=== PATIENT | female | born 1995 | race Caucasian/White ===

== ENCOUNTER 2017-04-04 21:55 | Emergency (ER) | payer BC ==
[2017-04-04 22:20] VITALS: BP 120/70
[2017-04-04] MEDS ORDERED: Metoclopramide 10 MG/2 ML SDV IVPUSH ONE (23:00)
[2017-04-04] MEDS ORDERED: Ketorolac 30 MG/ML SDV IVPUSH SCH (23:00)
[2017-04-04] MEDS ORDERED: HYDROmorphone 0.5 MG/0.5 ML Syringe IVPUSH ONE (23:00)
[2017-04-04] MEDS ORDERED: Dextrose 5%-0.9% NaCl 1,000 ML IV SCH (23:00)
--- NOTE | 2017-04-04 23:02 | EDM.PDOC ---
ED HPI GENERAL MEDICAL PROBLEM - General Chief Complaint: Flank Pain Stated Complaint: RIGHT FLANK PAIN Time Seen by Provider: 04/04/17 22:56 Source of Information: Reports: Patient History Limitations: Reports: No Limitations - History of Present Illness INITIAL COMMENTS - FREE TEXT/NARRATIVE: 22-year-old female presents the ED with diffuse right sided abdominal pain rating up into her right flank. Associated nausea but no vomiting. Poor appetite developed fever and chills today. She is appreciated some dysuria with some urgency and frequency off and on for the last 3 days. Previous urinary tract infections but no kidney infections. No previous abdominal surgery. She has noted some blood in her urine. Denies any chance for . Onset: Gradual Onset Date: 04/01/17 (Initial dysuria and frequency. Right flank pain fever and chills starting more the last 24 hours) Duration: Day(s): Location: Reports: Back (Right flank pain started 24 hours ago) Quality: Reports: Burning, Stabbing, Throbbing Severity: Moderate Improves with: Reports: None (8 out of 10.) Worsens with: Reports: None Context: Denies: Activity, Exercise, Lifting, Sick Contact Associated Symptoms: Reports: Fever/Chills, Loss of Appetite, Malaise, Nausea/ Vomiting. 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: Other (see below) (None.) Right Flank Pain Score (Numeric/FACES): 7 - Related Data Allergies Allergy/AdvReac Type Severity Reaction Status Date / Time adhesive Allergy Rash Verified 04/04/17 22:20 morphine AdvReac Intermediate Airway Verified 04/04/17 22:20 Tightness Home Meds: Home Meds Albuterol Sulfate [Proair Hfa] 2 puff INH ASDIRECTED 03/10/15 [History] DULoxetine [Cymbalta] 60 mg PO DAILY 04/04/17 [History] Sulfamethoxazole/Trimethoprim [Bactrim Ds Tablet] 1 each PO BID #18 tablet 04/05 [Rx] Past Medical History - Past Health History Medical/Surgical History: Denies Medical/Surgical History Other HEENT History: wisdom Gastrointestinal History: Reports: Other (See Below) Other Gastrointestinal History: pyloric stenosis surgery Musculoskeletal History: Reports: Fibromyalgia Psychiatric History: Reports: Anxiety - Past Surgical History Other GI Surgeries/Procedures: "Stomach surgery" Social & Family History - Family History Family Medical History: Noncontributory - Tobacco Use Smoking Status *Q: Never Smoker Second Hand Smoke Exposure: No - Alcohol Use Days Per Week of Alcohol Use: 0 - Recreational Drug Use Recreational Drug Use: No - Living Situation & Occupation Living situation: Reports: Single Occupation: Employed ED ROS GENERAL - Review of Systems Review Of Systems: See Below Constitutional: Reports: Fever, Chills, Malaise, Weakness, Fatigue, Decreased Appetite. Denies: Weight Loss HEENT: Reports: No Symptoms Respiratory: Reports: No Symptoms Cardiovascular: Reports: No Symptoms Endocrine: Reports: Fatigue GI/Abdominal: Reports: Abdominal Pain (Right effie-abdominal pain), Decreased Appetite, Nausea : Reports: Dysuria, Flank Pain, Frequency, Hematuria. Denies: Urgency Musculoskeletal: Reports: Back Pain (Right flank pain) Skin: Reports: No Symptoms Neurological: Reports: No Symptoms ED EXAM, RENAL/ - Physical Exam Exam: See Below Exam Limited By: No Limitations General Appearance: Alert, WD/WN, Mild Distress (Does feel warm to palpation.), Other Eye Exam: Bilateral Eye: Normal Inspection, PERRL Throat/Mouth: Normal Inspection, Normal Lips, Normal Oropharynx Head: Atraumatic, Normocephalic Neck: Normal Inspection, Supple, Non-Tender, Full Range of Motion. No: Lymphadenopathy (L), Lymphadenopathy (R) Respiratory/Chest: No Respiratory Distress, Lungs Clear, Normal Breath Sounds, No Accessory Muscle Use Cardiovascular: Normal Peripheral Pulses, Regular Rate, Rhythm, No Edema, No Gallop, No Murmur GI/Abdominal: Normal Bowel Sounds, Soft, Non-Tender, No Organomegaly, No Abnormal Bruit, No Mass, Pelvis Stable Back Exam: Full Range of Motion, CVA Tenderness (R). No: CVA Tenderness (L) ( Moderate) Extremities: Normal Inspection, Normal Range of Motion, Non-Tender, No Pedal Edema, Normal Capillary Refill Neurological: Alert, Oriented, Normal Cognition, Normal Gait, Normal Reflexes, No Motor/Sensory Deficits Psychiatric: Normal Affect, Normal Mood Skin Exam: Warm, Dry, Intact, Normal Color, No Rash Course - Vital Signs Last Recorded V/S: Last Vital Signs Temp 37.0 C 04/04/17 22:17 Pulse 84 04/04/17 22:17 Resp 16 04/04/17 22:17 BP 120/70 04/04/17 22:17 Pulse Ox 99 04/04/17 22:17 - Orders/Labs/Meds Orders: Active Orders 24 hr Category Date Time Status CULTURE BLOOD [BC] Stat Lab 04/04/17 23:10 Received CULTURE BLOOD [BC] Stat Lab 04/04/17 23:20 Received CULTURE URINE [RM] Stat Lab 04/04/17 23:26 Uncollected Dextrose 5%-0.9% NaCl [Dextrose 5%-Normal Saline] 1,000 Med 04/04/17 23:00 Active ml IV ASDIRECTED Ketorolac [Toradol] Med 04/04/17 23:00 Active 30 mg IVPUSH ONETIME Blood Culture x2 Reflex Set [OM.PC] Stat Oth 04/04/17 23:00 Ordered Medication Orders Dextrose/Sodium Chloride (Dextrose 5%-Normal Saline) 1,000 mls @ 500 mls/hr IV ASDIRECTED LUCY Last Admin: 04/04/17 23:22 Dose: 500 mls/hr Ketorolac Tromethamine (Toradol) 30 mg IVPUSH ONETIME LUCY Last Admin: 04/04/17 23:18 Dose: 30 mg Labs: Laboratory Tests 04/04/17 04/04/17 04/04/17 Range/Units 22:45 23:10 23:10 WBC 6.03 (3.98-10.04) K/mm3 RBC 4.85 (3.98-5.22) M/mm3 Hgb 12.5 (11.2-15.7) gm/L Hct 37.3 (34.1-44.9) % MCV 76.9 L (79.4-94.8) fl MCH 25.8 (25.6-32.2) pg MCHC 33.5 (32.2-35.5) g/dl RDW Std Deviation 38.1 (36.4-46.3) fL Plt Count 232 (182-369) K/mm3 MPV 10.3 (9.4-12.3) fl Neutrophils % (Manual) 42 (40-60) % Band Neutrophils % 0 (0-10) % Lymphocytes % (Manual) 54 H (20-40) % Immat Monocytes % (Man) 0 Monocytes % (Manual) 4 (2-10) % Eosinophils % (Manual) 0 L (0.7-5.8) % Basophils % (Manual) 0 L (0.1-1.2) Metamyelocytes % 0 Myelocytes % 0 Promyelocytes % 0 Blast Cells % 0 Plasma Cell % (Manual) 0 Nucleated RBCs 0.0 % Platelet Estimate Adequate RBC Morph Comment Normal Sodium 141 (136-145) mEq/L Potassium 3.2 L (3.5-5.1) mEq/L Chloride 106 (98-107) mEq/L Carbon Dioxide 26 (21-32) mEq/L Anion Gap 12.2 (5-15) BUN 13 (7-18) mg/dL Creatinine 0.8 (0.55-1.02) mg/dL Est Cr Clr Drug Dosing 91.24 mL/min Estimated GFR (MDRD) > 60 (>60) mL/min BUN/Creatinine Ratio 16.3 (14-18) Glucose 162 H (74-106) mg/dL Calcium 8.5 (8.5-10.1) mg/dL Total Bilirubin 0.4 (0.2-1.0) mg/dL AST 32 (15-37) U/L ALT 75 H (14-59) U/L Alkaline Phosphatase 42 L (46-116) U/L C-Reactive Protein 0.6 (<1.0) mg/dL Total Protein 7.1 (6.4-8.2) g/dl Albumin 3.4 (3.4-5.0) g/dl Globulin 3.7 gm/dL Albumin/Globulin Ratio 0.9 L (1-2) HCG, Qual (NEGATIVE) Urine Color Yellow (Yellow) Urine Appearance Slt cloudy H (Clear) Urine pH 8.5 H (5.0-8.0) Ur Specific [place] 1.020 (1.005-1.030) Urine Protein 2+ H (Negative) Urine Glucose (UA) Negative (Negative) Urine Ketones Negative (Negative) Urine Occult Blood 2+ H (Negative) Urine Nitrite Negative (Negative) Urine Bilirubin Negative (Negative) Urine Urobilinogen 2.0 H (0.2-1.0) Ur Leukocyte Esterase 1+ H (Negative) Urine RBC 20-30 H (0-5) /hpf Urine WBC 10-20 H (0-5) /hpf Ur Epithelial Cells 0-5 (0-5) /hpf Urine Bacteria Few (FEW) /hpf Urine Mucus Few (FEW) /hpf 04/04/17 Range/Units 23:10 WBC (3.98-10.04) K/mm3 RBC (3.98-5.22) M/mm3 Hgb (11.2-15.7) gm/L Hct (34.1-44.9) % MCV (79.4-94.8) fl MCH (25.6-32.2) pg MCHC (32.2-35.5) g/dl RDW Std Deviation (36.4-46.3) fL Plt Count (182-369) K/mm3 MPV (9.4-12.3) fl Neutrophils % (Manual) (40-60) % Band Neutrophils % (0-10) % Lymphocytes % (Manual) (20-40) % Immat Monocytes % (Man) Monocytes % (Manual) (2-10) % Eosinophils % (Manual) (0.7-5.8) % Basophils % (Manual) (0.1-1.2) Metamyelocytes % Myelocytes % Promyelocytes % Blast Cells % Plasma Cell % (Manual) Nucleated RBCs % Platelet Estimate RBC Morph Comment Sodium (136-145) mEq/L Potassium (3.5-5.1) mEq/L Chloride (98-107) mEq/L Carbon Dioxide (21-32) mEq/L Anion Gap (5-15) BUN (7-18) mg/dL Creatinine (0.55-1.02) mg/dL Est Cr Clr Drug Dosing mL/min Estimated GFR (MDRD) (>60) mL/min BUN/Creatinine Ratio (14-18) Glucose (74-106) mg/dL Calcium (8.5-10.1) mg/dL Total Bilirubin (0.2-1.0) mg/dL AST (15-37) U/L ALT (14-59) U/L Alkaline Phosphatase (46-116) U/L C-Reactive Protein (<1.0) mg/dL Total Protein (6.4-8.2) g/dl Albumin (3.4-5.0) g/dl Globulin gm/dL Albumin/Globulin Ratio (1-2) HCG, Qual Negative (NEGATIVE) Urine Color (Yellow) Urine Appearance (Clear) Urine pH (5.0-8.0) Ur Specific [place] (1.005-1.030) Urine Protein (Negative) Urine Glucose (UA) (Negative) Urine Ketones (Negative) Urine Occult Blood (Negative) Urine Nitrite (Negative) Urine Bilirubin (Negative) Urine Urobilinogen (0.2-1.0) Ur Leukocyte Esterase (Negative) Urine RBC (0-5) /hpf Urine WBC (0-5) /hpf Ur Epithelial Cells (0-5) /hpf Urine Bacteria (FEW) /hpf Urine Mucus (FEW) /hpf Meds: Medications Generic Name Dose Route Start Last Admin Trade Name Freq PRN Reason Stop Dose Admin Dextrose/Sodium Chloride 1,000 mls @ 500 mls/hr 04/04/17 23:00 04/04/17 23:22 Dextrose 5%-Normal Saline IV 500 mls/hr ASDIRECTED LUCY Administration Ketorolac Tromethamine 30 mg 04/04/17 23:00 04/04/17 23:18 Toradol IVPUSH 30 mg ONETIME LUCY Administration Discontinued Medications Generic Name Dose Route Start Last Admin Trade Name Freq PRN Reason Stop Dose Admin Hydromorphone HCl 0.5 mg 04/04/17 23:00 04/04/17 23:19 Dilaudid IVPUSH 04/04/17 23:01 0.5 mg ONETIME ONE Administration Ceftriaxone Sodium 2 gm/ 100 mls @ 200 mls/hr 04/04/17 23:28 04/04/17 23:45 Sodium Chloride IV 04/04/17 23:57 200 mls/hr ONETIME ONE Administration Metoclopramide HCl 7.5 mg 04/04/17 23:00 04/04/17 23:15 Reglan IVPUSH 04/04/17 23:01 7.5 mg ONETIME ONE Administration - Radiology Interpretation Free Text/Narrative:: 22-year-old female presents to the ER with dysuria urgency frequency and hematuria for the last 2-3 days. Last 24 she developed right-sided flank pain which is constant throbbing with associated nausea fever and chills. Clinically she has developed a right-sided pyelonephritis She has had bladder infections before but never kidney infection to her knowledge. She is warm to palpation. Plan IV D5 normal saline at 500 mils per hour. Given Dilaudid 0.5 mg IV with Toradol 30 mg IV and Reglan 7.5 mg IV for pain and nausea relief. Urinalysis to be collected as well as routine labs including CRP and blood cultures 2 and a beta-hCG. - Re-Assessments/Exams Free Text/Narrative Re-Assessment/Exam: 04/04/17 23:27 urinalysis shows 2+ blood on the dip. It shows 20-30 red RBCs per power field but only to 10 WBCs per high-power field. Minimal bacteria are appreciated. This is concerning for possible stone disease causing the hematuria. However she does appear to be febrile as well. We'll await the rest of her labs. 04/05/17 01:01 Labs reveal a total white count of 6.03 with a normal differential hemoglobin is 12.5 with hematocrit of 37.3. MCV is a little on the low side at 76.9. Blood count 232,000. Sodium 141 potassium slightly low at 3.2 chloride 106 bicarbonate 26 and a gap is 12.2 be when his 13 creatinine is 0.8. Glucose is elevated 162. Bilirubin 0.4 AST 32 ALT mildly elevated at 75 of phosphatase normal at 42 C-reactive protein 0.6. HCG was negative. Urine is slightly cloudy with 2+ protein and 2+ blood cells. Leukocyte esterase trace with 20-30 RBCs and 10-20 white blood cells per high-power field recorded. 0-5 epithelial cells. She is feeling much improved after IV analgesia and has completed IV Rocephin. I will discharge her home on Bactrim double strength 1 tablet twice daily for the next 9 days. I have some concerns or may be a renal colicky picture her. But I did not pursue further investigations the reason is that she has a normal white count in spite of a low-grade fever. She has continued pain and imaging of her renal system with CT would be advised to look for a stone. Departure - Departure Time of Disposition: 00:49 Disposition: Home, Self-Care 01 Condition: Fair Clinical Impression: Upper urinary tract infection - Discharge Information Prescriptions: Sulfamethoxazole/Trimethoprim [Bactrim Ds Tablet] 1 each PO BID #18 tablet Instructions: Urinary Tract Infection, Adult Referrals: Nery De, [employer] [Primary Care Provider] - Forms: ED Department Discharge Additional Instructions: Evaluation in the emergency room tonight in regards to right flank pain and urinary tract symptoms of dysuria urgency and frequency for 2-3 days. Associated low-grade fever indicating bacteria entering the bloodstream making you sick. This suggests a kidney infection is developing. Lab work was done and revealed a fairly normal white count suggesting no signs of severe systemic infection at this time. Year infection appears to travel from the bladder up into the ureter mimicking renal colic or kidney stone. You're treated therefore with the initial dose of antibiotic Rocephin 1 g intravenously. Will need to continue antibiotics in the form of a pill. Start Bactrim double strength 1 tablet twice daily tomorrow morning and uses for 9 days to clear up infection completely. Continue Motrin 600 mg every 6 hours for fever and/or pain relief as needed. He should expect marked improvement over the next 12-24 hours when the intravenous antibiotic has started to work. - My Orders Last 24 Hours: My Active Orders 04/04/17 23:00 Dextrose 5%-0.9% NaCl [Dextrose 5%-Normal Saline] 1,000 ml IV ASDIRECTED Ketorolac [Toradol] 30 mg IVPUSH ONETIME Blood Culture x2 Reflex Set [OM.PC] Stat 04/04/17 23:10 CULTURE BLOOD [BC] Stat 04/04/17 23:20 CULTURE BLOOD [BC] Stat 04/04/17 23:26 CULTURE URINE [RM] Stat - Assessment/Plan Last 24 Hours: My Active Orders 04/04/17 23:00 Dextrose 5%-0.9% NaCl [Dextrose 5%-Normal Saline] 1,000 ml IV ASDIRECTED Ketorolac [Toradol] 30 mg IVPUSH ONETIME Blood Culture x2 Reflex Set [OM.PC] Stat 04/04/17 23:10 CULTURE BLOOD [BC] Stat 04/04/17 23:20 CULTURE BLOOD [BC] Stat 04/04/17 23:26 CULTURE URINE [RM] Stat
[2017-04-04] MEDS ORDERED: cefTRIAXone 2 GM in Sodium Chloride 0.9% 100 ML IV ONE (23:28)
== END 2017-04-05 00:59 | disposition home or self-care (01) ==
LOC: JD.ED 21:55
DX: N39.0 Urinary tract infection, site not specified (principal); F41.9 Anxiety disorder, unspecified; Z79.899 Other long term (current) drug therapy; Z88.5 Allergy status to narcotic agent; Z91.048 Other nonmedicinal substance allergy status
CPT/HCPCS: 36415; 80053; 81001; 84703; 85025; 86140; 87040; 96361; 96365; 96375; 99284; J0696; J1170; J1885; J2765; J7030; J7042

== ENCOUNTER 2017-04-24 07:24 | Emergency (ER) | payer BC ==
[2017-04-24 07:33] VITALS: BP 127/81
[2017-04-24] MEDS ORDERED: Acetaminophen 325 MG Tab PO ONE (08:44)
[2017-04-24] MEDS ORDERED: Ketorolac 30 MG/ML SDV IM ONE (08:44)
--- NOTE | 2017-04-24 08:46 | EDM.PDOC ---
ED HPI GENERAL MEDICAL PROBLEM - General Chief Complaint: Back Pain or Injury Stated Complaint: NECK, BACK, SHOULDER PAIN Time Seen by Provider: 04/24/17 07:41 Source of Information: Reports: Patient History Limitations: Reports: No Limitations - History of Present Illness INITIAL COMMENTS - FREE TEXT/NARRATIVE: The patient is a 22-year-old female with a chief complaint of right neck and shoulder pain. States it started about a day ago. No injury. No recent heavy lifting or other exercise. Pain is located in the right neck area and radiates down towards the shoulder. Worse with movement of the head. No relieving factors. She tried a cyclobenzaprine this morning and that was not helpful. She did not take any other medications. No additional pains. No fever or recent illness or recent injury. No numbness or weakness. Right Shoulder Pain Score (Numeric/FACES): 8 - Related Data Allergies Allergy/AdvReac Type Severity Reaction Status Date / Time adhesive Allergy Rash Verified 04/24/17 07:33 morphine AdvReac Intermediate Airway Verified 04/24/17 07:33 Tightness Home Meds: Home Meds Albuterol Sulfate [Proair Hfa] 2 puff INH ASDIRECTED 03/10/15 [History] DULoxetine [Cymbalta] 60 mg PO DAILY 04/04/17 [History] Past Medical History - Past Health History Medical/Surgical History: Denies Medical/Surgical History Other HEENT History: wisdom Respiratory History: Reports: Asthma Gastrointestinal History: Reports: Other (See Below) Other Gastrointestinal History: pyloric stenosis surgery Musculoskeletal History: Reports: Fibromyalgia Psychiatric History: Reports: Anxiety - Past Surgical History Other GI Surgeries/Procedures: "Stomach surgery" Social & Family History - Family History Family Medical History: Noncontributory - Tobacco Use Smoking Status *Q: Never Smoker Second Hand Smoke Exposure: No - Caffeine Use Caffeine Use: Reports: None - Alcohol Use Days Per Week of Alcohol Use: 0 - Recreational Drug Use Recreational Drug Use: No - Living Situation & Occupation Living situation: Reports: Single Occupation: Employed ED ROS GENERAL - Review of Systems Review Of Systems: See Below Constitutional: Denies: Fever HEENT: Reports: No Symptoms Respiratory: Denies: Cough Cardiovascular: Denies: Chest Pain Musculoskeletal: Reports: Neck Pain, Shoulder Pain Skin: Denies: Rash Neurological: Denies: Numbness, Paresthesia, Weakness ED EXAM, UPPER BACK/NECK PAIN - Physical Exam Exam: See Below Exam Limited By: No Limitations General Appearance: Alert, WD/WN, No Apparent Distress Eye Exam: Bilateral Eye: Normal Inspection Ears Exam: Normal External Exam Nose Exam: Normal Inspection Throat/Mouth Exam: Normal Inspection, Normal Voice, No Airway Compromise Head Exam: Atraumatic, Normocephalic Neck Exam: Full Range of Motion, Normal Alignment, Normal Inspection, Other (No midline tenderness. Skin normal. No swellings or deformities. Patient is tender throughout the right trapezius area.) Cardiovascular/Respiratory: No Respiratory Distress Back Exam: Normal Inspection. No: Vertebral Tenderness Extremities: Normal Inspection Neurologic: No Motor/Sensory Deficits, Normal Mood/Affect, Oriented x 3 Psychiatric: Normal Affect, Normal Mood Skin Exam: Normal Color, Warm/Dry Course - Vital Signs Last Recorded V/S: Last Vital Signs Temp 36.6 C 04/24/17 07:29 Pulse 68 04/24/17 07:29 Resp 16 04/24/17 07:29 BP 127/81 04/24/17 07:29 Pulse Ox 95 04/24/17 07:29 - Orders/Labs/Meds Meds: Medications Discontinued Medications Generic Name Dose Route Start Last Admin Trade Name Michi PRN Reason Stop Dose Admin Acetaminophen 650 mg 04/24/17 08:44 04/24/17 08:55 Tylenol PO 04/24/17 08:45 650 mg NOW ONE Administration Ketorolac Tromethamine 30 mg 04/24/17 08:44 04/24/17 08:54 Toradol IM 04/24/17 08:45 30 mg ONETIME ONE Administration Departure - Departure Time of Disposition: 08:45 Disposition: Home, Self-Care 01 Clinical Impression: Trapezius muscle strain Qualifiers: Encounter type: initial encounter Laterality: right Qualified Code(s): S46.811A - Strain of other muscles, fascia and tendons at shoulder and upper arm level, right arm, initial encounter - Discharge Information Instructions: Muscle Strain, [id number] Referrals: Nery De [employer] [Primary Care Provider] - Forms: ED Department Discharge Additional Instructions: 1. Apply heat off and on to the area of pain 2. Take ibuprofen 600 mg (3 tablets) every 6 hours of pain. Take acetaminophen (Tylenol) in addition to ibuprofen according to bottle directions. Ibuprofen and acetaminophen work in different ways and are cleared by the body in different ways - it is OK to take them together. You may also take your home flexeril (cyclobenzaprine) for muscle relaxation. 3. Follow up with your primary doctor for further care.
== END 2017-04-24 09:00 | disposition home or self-care (01) ==
LOC: JD.ED 07:24
DX: S46.811A Strain of other muscles, fascia and tendons at shoulder and upper arm level, right arm, initial encounter (principal); Z88.5 Allergy status to narcotic agent; Z79.899 Other long term (current) drug therapy; X58.XXXA Exposure to other specified factors, initial encounter
CPT/HCPCS: 96372; 99283; A9270; J1885

== ENCOUNTER 2017-06-20 20:40 | Emergency (ER) | payer BC ==
[2017-06-20 21:34] VITALS: BP 130/67
[2017-06-20] MEDS ORDERED: Doxycycline 100 MG Cap PO ONE (21:34)
--- NOTE | 2017-06-20 21:51 | EDM.PDOC ---
ED HPI GENERAL MEDICAL PROBLEM - General Chief Complaint: Skin Complaint Stated Complaint: BUG BITE ON ARM SWELLING AND PAINFUL Time Seen by Provider: 06/20/17 21:28 Source of Information: Reports: Patient History Limitations: Reports: No Limitations - History of Present Illness INITIAL COMMENTS - FREE TEXT/NARRATIVE: 22-year-old female presents for evaluation and treatment of a possible bug bite to the right antecubital space. Patient reports on night, Tuesday morning she first appreciated pruritus to the area. She states on Tuesday she felt lightheaded. Tuesday she noted swelling to the area and today she noticed that the area was causing discomfort. She states that she had some nausea and headache last night. She has not had any fevers or vomiting. Reports the area is swollen, tender and erythematous. She is not appreciating a drainage or discharge from the area. She states she did not actually see any bugs bite her but she was in a home that has multiple critters living in it. Denies any IV drug use. - Related Data Allergies Allergy/AdvReac Type Severity Reaction Status Date / Time adhesive Allergy Rash Verified 06/20/17 21:34 morphine AdvReac Intermediate Airway Verified 06/20/17 21:34 Tightness Home Meds: Home Meds Albuterol Sulfate [Proair Hfa] 2 puff INH ASDIRECTED 03/10/15 [History] DULoxetine [Cymbalta] 60 mg PO DAILY 04/04/17 [History] Doxycycline [Vibramycin] 100 mg PO BID #19 cap 06/20/17 [Rx] Past Medical History - Past Health History Medical/Surgical History: Denies Medical/Surgical History Other HEENT History: wisdom Respiratory History: Reports: Asthma Gastrointestinal History: Reports: Other (See Below) Other Gastrointestinal History: pyloric stenosis surgery Musculoskeletal History: Reports: Fibromyalgia Psychiatric History: Reports: Anxiety - Past Surgical History Other GI Surgeries/Procedures: "Stomach surgery" Social & Family History - Family History Family Medical History: Noncontributory - Tobacco Use Smoking Status *Q: Never Smoker Second Hand Smoke Exposure: No - Caffeine Use Caffeine Use: Reports: None - Alcohol Use Days Per Week of Alcohol Use: 0 - Recreational Drug Use Recreational Drug Use: No - Living Situation & Occupation Living situation: Reports: Single Occupation: Employed ED ROS GENERAL - Review of Systems Review Of Systems: See Below Constitutional: Denies: Fever Cardiovascular: Reports: Lightheadedness GI/Abdominal: Reports: Nausea. Denies: Vomiting Skin: Reports: Erythema (right antecubital fossa), Lumps (right antecubital area ) Neurological: Reports: Headache ED EXAM, SKIN/RASH Exam: See Below Exam Limited By: No Limitations General Appearance: Alert, WD/WN, No Apparent Distress Respiratory/Chest: No Respiratory Distress, Lungs Clear, Normal Breath Sounds Cardiovascular: Normal Peripheral Pulses, Regular Rate, Rhythm, No Murmur Peripheral Pulses: 2+: Radial (L), Radial (R) Neurological: Alert, Oriented, Normal Cognition Psychiatric: Normal Affect, Normal Mood Skin: Warm, Dry, Normal Color, Erythema Location, Skin: Upper Extremity, Right (antecubital fossa) Associated features: Warmth, Tenderness (approximately 3cm area of erythema and tenderness with a central 1cm indurated area; no drainage or discharge) Course - Vital Signs Last Recorded V/S: Last Vital Signs Temp 36.3 C 06/20/17 21:33 Pulse 74 06/20/17 21:33 Resp 16 06/20/17 21:33 BP 130/67 06/20/17 21:33 Pulse Ox 100 06/20/17 21:33 - Orders/Labs/Meds Meds: Medications Discontinued Medications Generic Name Dose Route Start Last Admin Trade Name Michi PRN Reason Stop Dose Admin Doxycycline Hyclate 100 mg 06/20/17 21:34 06/20/17 21:37 Vibramycin PO 06/20/17 21:35 100 mg ONETIME ONE Administration Departure - Departure Time of Disposition: 21:48 Disposition: Home, Self-Care 01 Condition: Fair Clinical Impression: Cellulitis - Discharge Information Prescriptions: Doxycycline [Vibramycin] 100 mg PO BID #19 cap Instructions: Cellulitis, Adult Referrals: Nery De NP [Primary Care Provider] - Forms: ED Department Discharge Additional Instructions: Doxycycline 1 Twice a day. your first dose was given in the ER. Start your prescription tomorrow. [id number] Tylenol or Motrin as needed for pain relief. Recommend using a warm compress to the area 3 or 4 times a day for 15-20 minutes. Expect the area to get slightly worse before it gets better. Follow-up with your primary care provider if it is not much better within 2 weeks. Please return to the ER if your symptoms change or worsen.
== END 2017-06-20 22:00 | disposition home or self-care (01) ==
LOC: JD.ED 20:40
DX: L03.113 Cellulitis of right upper limb (principal); Z79.899 Other long term (current) drug therapy; Z88.5 Allergy status to narcotic agent; Z91.09 Other allergy status, other than to drugs and biological substances
CPT/HCPCS: 99283; A9270

== ENCOUNTER 2017-07-16 04:45 | Emergency (ER) | payer BC ==
[2017-07-16 04:53] VITALS: BP 127/67
[2017-07-16] MEDS ORDERED: predniSONE 20 MG Tab PO STA (05:23)
--- NOTE | 2017-07-16 05:31 | EDM.PDOC ---
ED HPI GENERAL MEDICAL PROBLEM - General Chief Complaint: Allergic Reaction Stated Complaint: poss allergic reaction Time Seen by Provider: 07/16/17 05:10 Source of Information: Reports: Patient, Family (Father) History Limitations: Reports: No Limitations - History of Present Illness INITIAL COMMENTS - FREE TEXT/NARRATIVE: The patient states that she woke around 02:30 this morning with generalized pruritic urticaria, primarily affecting her legs and arms. By 03:30, she felt that her lips were becoming swollen. She denies having the sensation of throat swelling, dyspnea, or wheezing. No prior similar symptoms. The patient states that she takes Cymbalta every morning (not yet this morning) , for fibromyalgia and anxiety. She states that she also took an omeprazole yesterday morning, for epigastric pain that she was experiencing. She states that she ate dinner around 19:30 last night, and did not have a snack before going to bed. The patient's PCP is Blanche De. - Related Data Allergies Allergy/AdvReac Type Severity Reaction Status Date / Time adhesive Allergy Rash Verified 07/16/17 04:53 morphine AdvReac Intermediate Airway Verified 07/16/17 04:53 Tightness Home Meds: Home Meds DULoxetine [Cymbalta] 30 mg PO DAILY 04/04/17 [History] Prednisone [IJD: predniSONE] 1 tab PO WITHBREAKFAST #3 tab 07/16/17 [Rx] Past Medical History Psychiatric History: Reports: Anxiety, Other (See Below) (Fibromyalgia) - Past Surgical History GI Surgical History: Reports: Other (See Below) (Pyloromyotomy as an infant) Social & Family History - Family History Family Medical History: Noncontributory - Tobacco Use Smoking Status *Q: Never Smoker Second Hand Smoke Exposure: No - Caffeine Use Caffeine Use: Reports: None - Alcohol Use Alcohol Use History: Yes Days Per Week of Alcohol Use: 0 Alcohol Use Frequency: Rarely - Recreational Drug Use Recreational Drug Use: No - Living Situation & Occupation Living situation: Reports: , with Spouse 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 ED EXAM GENERAL NO PERIP PULSE - Physical Exam Exam: See Below Exam Limited By: No Limitations General Appearance: Alert, WD/WN, No Apparent Distress Eye Exam: Bilateral Eye: Normal Inspection Ears: Normal External Exam, Hearing Grossly Normal Nose: Normal Inspection, No Blood Throat/Mouth: Normal Inspection, Normal Lips (No apparent lip swelling), Normal Teeth, Normal Gums, Normal Oropharynx (No uvular swelling), Normal Voice, No Airway Compromise Head: Atraumatic, Normocephalic Neck: Normal Inspection, Full Range of Motion Respiratory/Chest: No Respiratory Distress, Lungs Clear, Normal Breath Sounds, No Accessory Muscle Use. No: Wheezing Cardiovascular: Normal Peripheral Pulses, Regular Rate, Rhythm, No Gallop, No JVD, No Murmur, No Rub GI/Abdominal: Normal Bowel Sounds, Soft, Non-Tender, No Organomegaly, No Distention, No Abnormal Bruit, No Mass (Female) Exam: Deferred Rectal (Female) Exam: Deferred Back Exam: Normal Inspection, Full Range of Motion, NT Extremities: Normal Inspection, Normal Range of Motion, No Pedal Edema, Normal Capillary Refill Neurological: Alert, Oriented, Normal Cognition, No Motor/Sensory Deficits Psychiatric: Normal Affect Skin Exam: Warm, Dry, Intact, Normal Color, Other (Generalized urticaria) Course - Vital Signs Last Recorded V/S: Last Vital Signs Temp 36.8 C 07/16/17 04:49 Pulse 90 07/16/17 04:49 Resp 18 07/16/17 04:49 BP 127/67 07/16/17 04:49 Pulse Ox 98 07/16/17 04:49 - Orders/Labs/Meds Meds: Medications Discontinued Medications Generic Name Dose Route Start Last Admin Trade Name Freq PRN Reason Stop Dose Admin Prednisone 40 mg 07/16/17 05:23 07/16/17 05:27 Prednisone PO 07/16/17 05:24 40 mg ONETIME STA Administration - Re-Assessments/Exams Free Text/Narrative Re-Assessment/Exam: 07/16/17 05:24 The patient appears to have generalized urticaria, but no signs of angioedema, gastrointestinal involvement, and no pulmonary involvement whatsoever. It is unclear if this is a genuine allergic reaction versus idiopathic urticaria, however, to be on the safe side, I have ordered 40 mg of prednisone, and will e- prescribe a three-day course, in the event that the patient's reaction is to something that she ingested. Further, I will refer the patient to an Fire Prevention Specialist. Departure - Departure Time of Disposition: 05:25 Disposition: Home, Self-Care 01 Condition: Fair Clinical Impression: Urticaria - Discharge Information Prescriptions: Prednisone [IJD: predniSONE] 1 tab PO WITHBREAKFAST #3 tab Instructions: Allergies, Adult, [id number] Referrals: Nery De NP [Primary Care Provider] - Suleiman Amato MD [Ordering Only Provider] - Forms: ED Department Discharge Additional Instructions: You were seen in the emergency room for generalized hives. It is unclear if the hives are due to an allergic reaction or a condition known as "idiopathic urticaria". To be on the safe side, you have been started on the steroid prednisone. A prescription for prednisone has been sent to the [facility] located in the [employer] [facility]. Take one tablet each morning, with breakfast, as prescribed. When you have hives, try to avoid heat, as heat tends to make them worse. In order to find out the cause of your hives, it is very important that you follow-up with the Fire Prevention Specialist Dr. Amato at the next available appointment. If your symptoms recur, or worsen, please do not hesitate to return to the ER.
== END 2017-07-16 05:45 | disposition home or self-care (01) ==
LOC: JD.ED 04:45
DX: L50.9 Urticaria, unspecified (principal); Z79.899 Other long term (current) drug therapy; Z88.5 Allergy status to narcotic agent; Z91.048 Other nonmedicinal substance allergy status
CPT/HCPCS: 99283; A9270

== ENCOUNTER 2018-08-05 12:15 | Inpatient (IN) | payer BC ==
[2018-08-05] MEDS ORDERED: Sodium Chloride 0.9% 10 ML Syringe FLUSH PRN (14:07)
[2018-08-05] MEDS ORDERED: Ondansetron 4 MG/2 ML SDV IVPUSH PRN ×2 (14:07→17:05)
[2018-08-05] MEDS ORDERED: Oxytocin/Lactated Ringers 10 UNIT/1,000 ML BAG IV SCH ×2 (14:15)
[2018-08-05] MEDS: Lactated Ringers 1,000 ML IV SCH ×4 (14:48→20:49)
[2018-08-05] MEDS ORDERED: ePHEDrine 50 MG/ML SDV IVPUSH PRN (17:05)
[2018-08-05] MEDS ORDERED: fentaNYL 100 MCG/2 ML SDV EPIDUR PRN (17:05)
--- NOTE | 2018-08-05 17:08 | PCM.PREANE ---
Preanesthetic Assessment - Anesthesia/Transfusion/Family Hx Anesthesia History: Prior Anesthesia Without Reaction Family History of Anesthesia Reaction: No Transfusion History: No Prior Transfusion(s) Intubation History: Unknown - Review of Systems General: No Symptoms Pulmonary: No Symptoms (asthma) Cardiovascular: No Symptoms Gastrointestinal: No Symptoms (GERD) Neurological: No Symptoms (history of back pain), Tingling (right hand carpal tunnel induced) Other: Reports: Anxiety - Physical Assessment NPO Status Date: 08/05/18 NPO Status Time: 15:30 Pulse: 82 O2 Sat by Pulse Oximetry: 99 Respiratory Rate: 16 Blood Pressure: 129/80 Temperature: 36.9 C Vital Signs: Last Vital Signs Temp 36.9 C 08/05/18 12:26 Pulse 82 08/05/18 12:26 Resp 16 08/05/18 12:26 BP 129/80 08/05/18 12:26 Pulse Ox Height: 1.6 m Weight: 90.718 kg ASA Class: 2 Mental Status: Alert & Oriented x3 Airway Class: Mallampati = 2 Dentition: Reports: Normal Dentition, Caries Thyro-Mental Finger Breadths: 3 Mouth Opening Finger Breadths: 3 ROM/Head Extension: Full Lungs: Clear to Auscultation, Normal Respiratory Effort Cardiovascular: Regular Rate, Regular Rhythm, No Murmurs - Lab Values: Laboratory Last Values WBC 9.43 K/mm3 (3.98-10.04) 08/05/18 13:10 RBC 4.42 M/mm3 (3.98-5.22) 08/05/18 13:10 Hgb 11.8 gm/L (11.2-15.7) 08/05/18 13:10 Hct 36.2 % (34.1-44.9) 08/05/18 13:10 MCV 81.9 fl (79.4-94.8) 08/05/18 13:10 MCH 26.7 pg (25.6-32.2) 08/05/18 13:10 MCHC 32.6 g/dl (32.2-35.5) 08/05/18 13:10 RDW Std Deviation 40.2 fL (36.4-46.3) 08/05/18 13:10 Plt Count 204 K/mm3 (182-369) 08/05/18 13:10 MPV 11.8 fl (9.4-12.3) 08/05/18 13:10 Neut % (Auto) 75.1 % (34.0-71.1) H 08/05/18 13:10 Lymph % (Auto) 16.8 % (19.3-51.7) L 08/05/18 13:10 [place] % (Auto) 7.1 % (4.7-12.5) 08/05/18 13:10 Eos % (Auto) 0.7 (0.7-5.8) 08/05/18 13:10 Baso % (Auto) 0.1 % (0.1-1.2) 08/05/18 13:10 Neut # (Auto) 7.08 K/mm3 (1.56-6.13) H 08/05/18 13:10 Lymph # (Auto) 1.58 K/mm3 (1.18-3.74) 08/05/18 13:10 [place] # (Auto) 0.67 K/mm3 (0.24-0.36) H 08/05/18 13:10 Eos # (Auto) 0.07 K/mm3 (0.04-0.36) 08/05/18 13:10 Baso # (Auto) 0.01 K/mm3 (0.01-0.08) 08/05/18 13:10 BUN 11 mg/dL (7-18) 08/05/18 13:10 Creatinine 0.7 mg/dL (0.55-1.02) 08/05/18 13:10 Est Cr Clr Drug Dosing TNP 08/05/18 13:10 Estimated GFR (MDRD) > 60 mL/min (>60) 08/05/18 13:10 Uric Acid 5.5 mg/dL (2.6-6.0) 08/05/18 13:10 AST 11 U/L (15-37) L 08/05/18 13:10 ALT 15 U/L (14-59) 08/05/18 13:10 Lactate Dehydrogenase 158 U/L (81-234) 08/05/18 13:10 Urine Color Yellow (Yellow) 08/05/18 12:40 Urine Appearance Cloudy (Clear) H 08/05/18 12:40 Urine pH 6.0 (5.0-8.0) 08/05/18 12:40 Ur Specific [place] > or = 1.030 (1.005-1.030) 08/05/18 12:40 Urine Protein 1+ (Negative) H 08/05/18 12:40 Urine Glucose (UA) Negative (Negative) 08/05/18 12:40 Urine Ketones Negative (Negative) 08/05/18 12:40 Urine Occult Blood Negative (Negative) 08/05/18 12:40 Urine Nitrite Negative (Negative) 08/05/18 12:40 Urine Bilirubin Negative (Negative) 08/05/18 12:40 Urine Urobilinogen 1.0 (0.2-1.0) 08/05/18 12:40 Ur Leukocyte Esterase 1+ (Negative) H 08/05/18 12:40 Above labs reviewed and noted and within acceptable ranges to proceed with epidural if desired. - Allergies Allergies/Adverse Reactions: Allergies Allergy/AdvReac Type Severity Reaction Status Date / Time morphine Allergy Intermediate Airway Verified 07/16/18 20:36 Tightness adhesive Allergy Rash Verified 07/16/18 20:36 - Anesthesia Plan Pre-Op Medication Ordered: None - Acknowledgements Anesthesia Type Planned: Epidural Pt an Appropriate Candidate for the Planned Anesthesia: Yes Alternatives and Risks of Anesthesia Discussed w Pt/Guardian: Yes Pt/Guardian Understands and Agrees with Anesthesia Plan: Yes PreAnesthesia Questionnaire - Past Health History Medical/Surgical History: Denies Medical/Surgical History HEENT History: Reports: Other (See Below) Other HEENT History: wisdom Respiratory History: Reports: Asthma Gastrointestinal History: Reports: Other (See Below) Other Gastrointestinal History: pyloric stenosis surgery 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: , 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 Musculoskeletal History: Reports: Fibromyalgia Neurological History: Reports: Other (See Below) Other Neuro History: Insomnia, resolved with Psychiatric History: Reports: Anxiety Endocrine/Metabolic History: Reports: Obesity/BMI 30+, Vitamin D Deficiency - Past Surgical History HEENT Surgical History: Reports: Oral Surgery GI Surgical History: Reports: Other (See Below) Other GI Surgeries/Procedures: Pyloric stenosis - SUBSTANCE USE Smoking Status *Q: Never Smoker Second Hand Smoke Exposure: No Recreational Drug Use History: No - HOME MEDS Home Medications: Home Meds Pnv No.122/Iron/Folic Acid [ Multi Tablet] 1 each PO DAILY 07/07/18 [ History] - CURRENT (IN HOUSE) MEDS Current Meds: Current Medications Lactated Ringer's (Ringers, Lactated) 1,000 mls @ 100 mls/hr IV ASDIRECTED LUCY Last Admin: 08/05/18 14:48 Dose: 100 mls/hr Oxytocin/Lactated Ringer's (Pitocin In Lr 10 Units/1,000 Ml) 10 unit in 1,000 mls @ 12 mls/hr IV TITRATE LUCY; Protocol Last Admin: 08/05/18 14:49 Dose: 2 munits/min, 12 mls/hr Oxytocin/Lactated Ringer's (Pitocin In Lr 10 Units/1,000 Ml) 10 unit in 1,000 mls @ 500 mls/hr IV .CONTINUOUS LUCY Ondansetron HCl (Zofran) 4 mg IVPUSH Q4H PRN PRN Reason: Nausea/Vomiting Sodium Chloride (Saline Flush) 10 ml FLUSH ASDIRECTED PRN PRN Reason: Keep Vein Open
[2018-08-05] MEDS ORDERED: Phenylephrine 1 MG in Sodium Chloride 0.9% 10 ML IV SCH (17:15)
[2018-08-05] MEDS ORDERED: fentaNYL/Bupivacaine-NS 2 MCG/ML-0.125%/PF 100 ML Bag EP SCH (17:15)
[2018-08-06] MEDS ORDERED: diphenhydrAMINE 50 MG/ML SDV IVPUSH PRN (00:04)
[2018-08-06] MEDS ORDERED: Lidocaine 1% 50 ML MDV ONE (01:46)
[2018-08-06] MEDS ORDERED: Witch Hazel Medicated Pads 100/Jar TOP PRN (03:49)
[2018-08-06] MEDS ORDERED: Lanolin 100% Cream 7 GM Tube TOP PRN (03:49)
[2018-08-06] MEDS ORDERED: Ibuprofen 600 MG Tab PO PRN (03:49)
[2018-08-06] MEDS ORDERED: Acetaminophen 325 MG Tab PO PRN (03:49)
[2018-08-06] MEDS ORDERED: Benzocaine/Menthol 20%-0.5% Spray 56 GM Canister TOP PRN (03:49)
[2018-08-06] MEDS ORDERED: Docusate Sodium 100 MG Cap PO PRN (03:49)
--- NOTE | 2018-08-06 03:51 | PCM.SN ---
- Free Text/Narrative Note: Delivery note: Kelly is a 23-year-old 2 para 1011 female at 40-0/7 weeks gestational age with an JOSUE of 08/06/2018 who was admitted on 08/05/2018 had been seen in walk-in clinic at [facility] and referred for elevated blood pressures, preeclampsia symptoms of headache, weight gain of 3 pounds over 3 days, right upper quadrant pain, seeing spots and generally not feeling well. Her blood pressure is noted to be high normal to mildly increased. Preeclampsia labs showed a uric acid of 5.5 and 1+ protein in her urine. She is noted to have 1+ pitting edema in bilateral lower extremities. Decision was made to proceed to induction of labor because of diagnosis of preeclampsia without severe features. Patient underwent Pitocin induction with artificial rupture membranes augmentation. Progressed very steadily to complete cervical dilation. She had an epidural for labor analgesia. At 0318 hrs. on 08/06/2018 she delivered a viable, rosado, female named Jevon in a direct occiput anterior position. Jevon weighed 3650 g (8 pounds 0.7 ounces), had Apgars of 7 and 9 and a length of 21.0 inches. She was placed on mom's abdomen and nose and mouth were bulb suctioned. There was terminal meconium that followed the baby at the time of delivery. No previous meconium had been noted. Pitocin was given IV to facilitate increase in uterine tone and decrease likelihood of bleeding. The cord was clamped 2 and cut by the baby's father. The umbilical cord had 3 vessels. Cord blood was obtained. Patient is known to have had a right labia minora laceration which was superficial with minimal anatomic distortion. The area was sutured with 3-0 Monocryl suture in a short running stitch. No perineal lacerations noted. The placenta delivered in a Lew presentation, appeared intact and complete and was discarded per patient desire. Estimated blood loss was 200 mL. Patient plans to breast-feed. Condition: Good.
[2018-08-06] MEDS ORDERED: Bupivacaine 0.25% 10 ML SDV ONE (04:00)
[2018-08-06] MEDS ORDERED: Lidocaine 1.5% with EPINEPHrine 1:200,000 5 ML Amp ONE (04:00)
--- NOTE | 2018-08-06 09:59 | PCM48HPAN ---
Post Anesthesia Note - EVALUATION WITHIN 48HRS OF ANESTHETIC Vital Signs in Normal Range: Yes Patient Participated in Evaluation: Yes Respiratory Function Stable: Yes Airway Patent: Yes Cardiovascular Function Stable: Yes Hydration Status Stable: Yes Pain Control Satisfactory: Yes Nausea and Vomiting Control Satisfactory: Yes Mental Status Recovered: Yes
--- NOTE | 2018-08-06 10:23 | PCM.SN ---
- Free Text/Narrative Note: note: Patient is doing well in the period. Minimal lochia, voiding well, ambulated without problems. Nursing without concerns. Patient is afebrile, vital signs are stable Abdomen is flat, soft, uterus is below the umbilicus and is firm and nontender. Legs are nontender. Assessment: recovery going well. Plan: Routine care. Patient be discharged home within the next 24-48 hours.
[2018-08-06] MEDS: Prenatal Multivitamin with Calcium/Folic Acid/Iron Tab PO SCH (20:09)
--- NOTE | 2018-08-07 07:02 | HP ---
DATE OF ADMISSION: 08/05/2018 REASON FOR ADMISSION: Preeclampsia symptoms, borderline elevated blood pressure. HISTORY OF PRESENT ILLNESS: Kelly is a 23-year-old 2, para 0-0-1-0 white female who was admitted to Labor and Delivery after being referred by the walk-in clinic at [facility] for numerous complaints. She was seen there for reasons of a headache, seeing spots in front of her eyes, right upper quadrant pain, increased swelling with a weight gain of 3 pounds in the last 3 days, and blood pressures that were borderline elevated at the clinic. Findings possibly consistent with preeclampsia. Her JOSUE is 08/06/2018, placing her now at 39-6/7 weeks' gestational age. She is admitted after laboratory tests show a uric acid of 5.5 and 1+ protein in her urine along with the other symptomatology. She is admitted for induction of labor due to preeclampsia without severe features. 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 Her course has been relatively unremarkable by her and her own history. First visit was on 11/29/2017 at 4-2/7 weeks. She had regular visits throughout the course. Her weight gain was from 162 pounds to 193 pounds for a 31-pound increase. Up until 07/31/2018, her blood pressure was within normal limits. Fundal height growth has been appropriate. LABORATORY TESTING: First labs showed blood to be A positive. Antibody screen is negative. Hemoglobin was 14.1 g/dL. Platelets were 210,000. Rubella titer showed immunity. RPR was nonreactive. Hepatitis B surface antigen was nonreactive. GC and chlamydia were not detected. TSH was normal at 1.04 mcg/mL. Second trimester labs showed hemoglobin of 11.9 g/dL. Platelets were 240,000. One- hour GTT was normal at 91 mg/dL. Group B strep screen was negative. ALLERGIES: 1. Morphine, which causes anaphylaxis. 2. Bad days, which cause a rash. 3. Environmental allergens. CURRENT MEDICATIONS: vitamins 1 daily. PAST MEDICAL HISTORY: 1. Miscarriage, first trimester. 2. Chronic fatigue syndrome. 3. Bursitis in right shoulder and trapezius muscle spasm along with right supraspinatus tendinitis. 4. Dermatology - right arm paresthesia. 5. Asthma. 6. Anxiety state. 7. Primary insomnia. PAST SURGICAL HISTORY: 1. Pyloric stenosis surgery at 1 week of age. 2. [place] teeth extraction. CURRENT MEDICATIONS: 1. vitamins. 2. Albuterol inhaler p.r.n. 3. Symbicort p.r.n. 4. Acetaminophen. FAMILY HISTORY: Mother with history of anxiety disorder. Father and sister with no problems noted. Maternal grandmother with thyroid disease. One brother with anxiety disorder. Maternal grandmother with bipolar disorder and anxiety disorder. No anesthesia, bleeding, blood clotting problems noted in the family. SOCIAL HISTORY: The patient is . is [employer]az[employer]. 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 She does not use any significant amounts of alcohol, drugs, or tobacco. REVIEW OF SYSTEMS: GENERAL: The patient has symptoms as outlined above. Otherwise has been having no other concerns. SKIN: Negative. HEENT, NECK, AND BACK: Spots in front of her eyes. Headache as described above. LUNGS: No shortness of breath or infectious symptoms. CARDIOVASCULAR: No chest pain or exercise intolerance. BREASTS: Changes associated with only. The patient does plan to breast feed. GI: Unremarkable. : Changes associated with with increased fundal height appropriate for dates. NEUROLOGICAL: Headache. PSYCHOLOGICAL: Some anxiety noted per the patient. PHYSICAL EXAMINATION: VITAL SIGNS: On last evaluation in clinic on 07/31/2018, the patient's weight was 193 pounds. Her blood pressure is 126/74 and pulse is 84. Fundal height was 39 cm and heart rate was 145. Cervix was dilated to 2.5 cm, 75% effaced, -2 station. GENERAL: The patient is a well-developed, well-nourished, pleasant female who appears in no acute distress. SKIN: Warm and dry, without lesions. HEENT, NECK, AND BACK: Within normal limits. LUNGS: Clear with good breath sounds in all lung pierre. CARDIOVASCULAR: Shows regular rate and rhythm without murmurs. BREASTS: Deferred. ABDOMEN: Shows fundal height consistent with term , vertex presentation by Edd maneuvers and cervical exam. PELVIC: Cervix is 2 cm, 90% effaced, -2 station, mid position, very soft. This represents somewhat of a change since her last evaluation in clinic. EXTREMITIES: Show 1+ pitting edema, right side greater than left. NEUROLOGICAL: Shows +1 to 2 deep tendon reflexes over 4 with left side mildly greater than right side. LABORATORY TESTING: Preeclampsia labs are performed and show normal platelets, AST and ALT. Her uric acid is 5.5, which is considered to be mildly increased. She has 1+ protein in her urine. ASSESSMENT: 1. A 39-6/7 weeks' intrauterine with multiple symptoms consistent with preeclampsia, without severe features. 2. Group B strep screen is negative. 3. The patient plans to breastfeed. 4. The patient is okay with epidural, but would like to try natural labor. 5. RPR is nonreactive, rubella titer shows immunity. PLAN: 1. We will monitor blood pressures closely during the course of the induction of labor. We will induce with artificial rupture of membranes and with Pitocin. The process is discussed with the patient and her in detail. They are wishing to proceed. 2. Epidural if the patient desires for labor analgesia. 3. Support decision. 4. If blood pressures increase, may use antihypertensive therapy. MMODAL /[id number]
[2018-08-07] MEDS ORDERED: Measles, Mumps & Rubella Vaccine 0.5 ML SDV SUBCUT ONE (08:33)
--- NOTE | 2018-08-07 08:45 | PCM.DCSUM1 ---
Discharge Summary - Hospital Course Free Text/Narrative:: Kelly is a 23-year-old 2 para 1011 female at 40-0/7 weeks gestational age with an JOSUE of 08/06/2018 who was admitted on 08/05/2018 had been seen in walk-in clinic at [facility] and referred for elevated blood pressures, preeclampsia symptoms of headache, weight gain of 3 pounds over 3 days, right upper quadrant pain, seeing spots and generally not feeling well. Her blood pressure is noted to be high normal to mildly increased. Preeclampsia labs showed a uric acid of 5.5 and 1+ protein in her urine. She is noted to have 1+ pitting edema in bilateral lower extremities. Decision was made to proceed to induction of labor because of diagnosis of preeclampsia without severe features. Patient underwent Pitocin induction with artificial rupture membranes augmentation. Progressed very steadily to complete cervical dilation. She had an epidural for labor analgesia. At 0318 hrs. on 08/06/2018 she delivered a viable, rosado, female infant named Jevon in a direct occiput anterior position. Jevon weighed 3650 g (8 pounds 0.7 ounces), had Apgars of 7 and 9 and a length of 21.0 inches. She was placed on mom's abdomen and nose and mouth were bulb suctioned. There was terminal meconium that followed the baby at the time of delivery. No previous meconium had been noted. Pitocin was given IV to facilitate increase in uterine tone and decrease likelihood of bleeding. The cord was clamped 2 and cut by the baby's father. The umbilical cord had 3 vessels. Cord blood was obtained. Patient is known to have had a right labia minora laceration which was superficial with minimal anatomic distortion. The area was sutured with 3-0 Monocryl suture in a short running stitch. No perineal lacerations noted. The placenta delivered in a Lew presentation, appeared intact and complete and was discarded per patient desire. Estimated blood loss was 200 mL. Patient initially thought about breast-feeding but is now decided to bottlefeed. patient is done well. She has minimal lochia, is ambulating well and voiding without problems. She desires discharge home. Diagnosis: Stroke: No - Discharge Data Discharge Date: 08/07/18 Discharge Disposition: Home, Self-Care 01 Condition: Good - Patient Instructions Diet: Regular Diet as Tolerated Activity: As Tolerated (No intercourse or tampons until bleeding resolves.) Driving: May Drive Today Showering/Bathing: May Shower (May take a bath) Notify Provider of: Fever, Increased Pain, Swelling and Redness, Nausea and/or Vomiting - Discharge Plan Home Medications: Home Meds Pnv No.122/Iron/Folic Acid [ Multi Tablet] 1 each PO DAILY 07/07/18 [ History] Acetaminophen [Tylenol] 650 mg PO Q4H PRN tablet 08/07/18 [Rx] Ibuprofen [Motrin] 600 mg PO Q4H PRN tablet 08/07/18 [Rx] Referrals: Nola Barajas MD [Primary Care Provider] - (Return to clinicDr. Barajas4 weeks.) - Discharge Summary/Plan Comment DC Time >30 min.: No Discharge Summary/Plan Comment: Discharge instructions: 1. Discharge home 2. Diet, activity and follow-up discussed with patient. Recommend nursing diet with increased calories and calcium. 3. Precautions given concern increased pain, bleeding, temperature, signs/ symptoms of DVT/PE. 4. Medications per home medication was printed, discussed with and given to the patient. 5. Return to clinic-Dr. Barajas at [facility] in 4 weeks. Diagnosis: Term -delivered Condition: Good - Patient Data Vitals - Most Recent: Last Vital Signs Temp 36.3 C 08/07/18 04:00 Pulse 74 08/07/18 04:00 Resp 14 08/07/18 04:00 BP 96/52 L 08/07/18 04:00 Pulse Ox 97 08/07/18 04:00 Weight - Most Recent: 90.718 kg Med Orders - Current: Current Medications Acetaminophen (Tylenol) 650 mg PO Q4H PRN PRN Reason: mild pain or fever Benzocaine/Menthol (Dermoplast Pain Relief Robert Lee) 0 gm TOP ASDIRECTED PRN PRN Reason: Perineal Comfort Measure Docusate Sodium (Colace) 100 mg PO BID PRN PRN Reason: Constipation Last Admin: 08/07/18 01:21 Dose: 100 mg Emollient Ointment (Lansinoh Hpa) 0 gm TOP ASDIRECTED PRN PRN Reason: Sore Nipples Ibuprofen (Motrin) 600 mg PO Q4H PRN PRN Reason: Mild pain or fever Last Admin: 08/06/18 20:04 Dose: 600 mg Prenat Multivit/Corporate Director/Iron/Folic Ac ( Plus Iron) 1 each PO DAILY LUCY Last Admin: 08/06/18 20:09 Dose: Not Given Donna Lucio (Tucks) 1 pad TOP ASDIRECTED PRN PRN Reason: Hemorrhoid pain Discontinued Medications Bupivacaine HCl (Sensorcaine-Mpf 0.25%) 10 ml .ROUTE .Combined Effort ONE Stop: 08/06/18 04:01 Diphenhydramine HCl (Benadryl) 25 mg IVPUSH Q6H PRN PRN Reason: Itching Ephedrine Sulfate (Ephedrine Sulfate) 5 mg IVPUSH ASDIRECTED PRN PRN Reason: Hypotension Fentanyl (Sublimaze) 100 mcg EPIDUR Q3H PRN PRN Reason: Pain Last Admin: 08/05/18 19:29 Dose: 100 mcg Fentanyl/Bupivacaine HCl (Mpgwnksy-Qxrme-Ao 2 Mcg/Ml-0.125%) 100 ml EP ASDIRECTED LUCY Last Admin: 08/05/18 19:29 Dose: 100 ml Lactated Ringer's (Ringers, Lactated) 1,000 mls @ 100 mls/hr IV ASDIRECTED LUCY Last Admin: 08/05/18 20:49 Dose: 100 mls/hr Oxytocin/Lactated Ringer's (Pitocin In Lr 10 Units/1,000 Ml) 10 unit in 1,000 mls @ 12 mls/hr IV TITRATE LUCY; Protocol Last Titration: 08/06/18 00:54 Dose: 7 munits/min, 42 mls/hr Oxytocin/Lactated Ringer's (Pitocin In Lr 10 Units/1,000 Ml) 10 unit in 1,000 mls @ 500 mls/hr IV .CONTINUOUS LUCY Last Admin: 08/06/18 03:18 Dose: 500 mls/hr Phenylephrine HCl 1 mg/ Sodium (Chloride) 10.1 mls @ 1 mls/sec IV TITRATE LUCY; Protocol Lidocaine HCl (Xylocaine 1%) Confirm Administered Dose 50 ml .ROUTE .Combined Effort ONE Stop: 08/06/18 01:47 Last Admin: 08/06/18 10:49 Dose: Not Given Lidocaine/Epinephrine (Xylocaine-Mpf 1.5% W/Epinephrine 1:200,000) 5 ml .ROUTE .STK-MED ONE Stop: 08/06/18 04:01 Measles/Mumps/Rubella Vaccine Live (M-M-R Ii Vaccine) 0.5 ml SUBCUT .ONCE ONE Stop: 08/07/18 08:34 Ondansetron HCl (Zofran) 4 mg IVPUSH Q4H PRN PRN Reason: Nausea/Vomiting Last Admin: 08/06/18 00:26 Dose: 4 mg Ondansetron HCl (Zofran) 4 mg IVPUSH ONETIME PRN PRN Reason: Nausea/Vomiting Sodium Chloride (Saline Flush) 10 ml FLUSH ASDIRECTED PRN PRN Reason: Keep Vein Open
[2018-08-07] MEDS: Prenatal Multivitamin with Calcium/Folic Acid/Iron Tab PO SCH (08:48)
[2018-08-07 08:59] VITALS: BP 117/71
== END 2018-08-07 10:15 | disposition home or self-care (01) | DRG 560 ==
LOC: JD.OB 12:15 → JD.OBCHECK 12:15 → JD.OB 14:08 → JD.OBCHECK 14:08 → OBSVTOIN 08-06 03:14 → JD.OB 08-06 03:15
PROVIDERS: ADMIT Obstetrics & Gynecology; ATTEND Obstetrics & Gynecology
PROC: 6A550ZT Pheresis of Cord Blood Stem Cells, Single (ICD-10-PCS; principal; 2018-08-06)
PROC: 10907ZC Drainage of Amniotic Fluid, Therapeutic from Products of Conception, Via Natural or Artificial Opening (ICD-10-PCS; principal; 2018-08-06)
PROC: 10E0XZZ Delivery of Products of Conception, External Approach (ICD-10-PCS; principal; 2018-08-06)
PROC: 0UQMXZZ Repair Vulva, External Approach (ICD-10-PCS; principal; 2018-08-06)
PROC: 3E033VJ Introduction of Other Hormone into Peripheral Vein, Percutaneous Approach (ICD-10-PCS; principal; 2018-08-06)
PROC: 3E0R3BZ Introduction of Anesthetic Agent into Spinal Canal, Percutaneous Approach (ICD-10-PCS; 2018-08-06)
PROC: 00HU33Z Insertion of Infusion Device into Spinal Canal, Percutaneous Approach (ICD-10-PCS; 2018-08-06)
PROC: 3E0234Z Introduction of Serum, Toxoid and Vaccine into Muscle, Percutaneous Approach (ICD-10-PCS; 2018-08-07)
DX: O14.94 Unspecified pre-eclampsia, complicating childbirth (principal); O77.0 Labor and delivery complicated by meconium in amniotic fluid; O70.0 First degree perineal laceration during delivery; Z3A.40 40 weeks gestation of pregnancy; Z37.0 Single live birth; O99.344 Other mental disorders complicating childbirth; F41.9 Anxiety disorder, unspecified; F51.01 Primary insomnia; O99.52 Diseases of the respiratory system complicating childbirth; J45.909 Unspecified asthma, uncomplicated; O99.214 Obesity complicating childbirth; E66.9 Obesity, unspecified; O75.89 Other specified complications of labor and delivery; M79.7 Fibromyalgia; O99.284 Endocrine, nutritional and metabolic diseases complicating childbirth; E55.9 Vitamin D deficiency, unspecified; Z88.5 Allergy status to narcotic agent; Z79.899 Other long term (current) drug therapy; Z88.8 Allergy status to other drugs, medicaments and biological substances; Z23 Encounter for immunization
CPT/HCPCS: 36415; 51702; 59025; 59409; 81003; 82565; 83615; 84450; 84460; 84520; 84550; 85025; 86592; 90471; 90707; A9270-GY; J2405; J2590; J3010; J3490; J7120

== ENCOUNTER 2018-11-11 00:15 | Emergency (ER) | payer BC ==
[2018-11-11 00:32] VITALS: BP 112/75
--- NOTE | 2018-11-11 00:39 | EDM.PDOC ---
ED HPI GENERAL MEDICAL PROBLEM - General Chief Complaint: Laceration Stated Complaint: HAND INJURY Time Seen by Provider: 11/11/18 00:26 Source of Information: Reports: Patient, Family, RN Notes Reviewed History Limitations: Reports: No Limitations - History of Present Illness INITIAL COMMENTS - FREE TEXT/NARRATIVE: The patient states that she cut her right 4th finger with a crowbar around midnight when she was laying some dawood. She presents with a U-shaped flap laceration to her right 4th finger pad. She is otherwise uninjured. Her last tetanus vaccination was just a few months ago. The patient does not have a PCP. Her STABILIZER OPERATOR is Dr. Nola Barajas. Right Finger-Ring Pain Score (Numeric/FACES): 8 - Related Data Allergies Allergy/AdvReac Type Severity Reaction Status Date / Time morphine Allergy Intermediate Airway Verified 11/11/18 00:28 Tightness adhesive Allergy Rash Verified 11/11/18 00:28 Home Meds: Home Meds DULoxetine [Cymbalta] 30 mg PO DAILY 11/11/18 [History] Past Medical History STABILIZER OPERATOR History: Reports: , Spontaneous Psychiatric History: Reports: Anxiety, Other (See Below) (Fibromyalgia. 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 ED EXAM, SKIN/RASH Exam: See Below Exam Limited By: No Limitations General Appearance: Alert, WD/WN, No Apparent Distress Extremities: Other (Small "U" shaped laceration with the connection of the flap at the distal aspect of the laceration, on the central right 4th finger pad. The edges of the laceration approximated on her own, and there is no maceration of tissue. The wound is not bleeding. Neurovascular status of the right upper extremity is intact.) Course - Vital Signs Last Recorded V/S: Last Vital Signs Temp 36.9 C 11/11/18 00:29 Pulse 80 11/11/18 00:29 Resp 18 11/11/18 00:29 BP 112/75 11/11/18 00:29 Pulse Ox 100 11/11/18 00:29 - Re-Assessments/Exams Free Text/Narrative Re-Assessment/Exam: 11/11/18 00:36 The flap laceration to the finger pad of the patient's right 4th finger is small enough that it does not really require a suture. I will have the patient keep it clean and place a Band-Aid over it. Departure - Departure Time of Disposition: 00:37 Disposition: Home, Self-Care 01 Condition: Good Clinical Impression: Finger laceration - Discharge Information *PRESCRIPTION DRUG MONITORING PROGRAM REVIEWED*: Not Applicable *COPY OF PRESCRIPTION DRUG MONITORING REPORT IN PATIENT BRITTANY: Not Applicable Instructions: Laceration Care, Adult Referrals: Nola Barajas MD [Physician] - Forms: ED Department Discharge Additional Instructions: You were seen in the emergency room after your right ring finger was cut with a crowbar. On examination, the cut is small enough that it does not require sutures. Keep the wound clean with ordinary soap and water when you bathe. Pat dry, and apply a clean bandage over it, daily. Take [id number] Tylenol or ibuprofen as needed for discomfort. If any other problems, please do not hesitate to return to the ER.
== END 2018-11-11 00:45 | disposition home or self-care (01) ==
LOC: JD.ED 00:15
DX: S61.214A Laceration without foreign body of right ring finger without damage to nail, initial encounter (principal); F41.9 Anxiety disorder, unspecified; Z79.899 Other long term (current) drug therapy; Z88.5 Allergy status to narcotic agent; Z91.09 Other allergy status, other than to drugs and biological substances; W26.8XXA Contact with other sharp object(s), not elsewhere classified, initial encounter
CPT/HCPCS: 99281; 99283

== ENCOUNTER 2019-02-23 22:27 | Emergency (ER) | payer BC ==
[2019-02-23 22:38] VITALS: BP 127/71; PULSE 65
--- NOTE | 2019-02-23 23:06 | EDM.PDOC ---
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 She is taken home test on Tuesday that was positive. Her last menstrual period was January 22 which makes her about 4 weeks 4 days. Apparently she was doing okay and then she started having some bleeding this morning and some cramping. About 2 hours ago she passed a really long blood clot and had lots of bleeding and saturated a pad. She said felt somewhat lightheaded so she comes to the ER for evaluation. She is a 4 para 1 abortus 2. She says each of her miscarriages in the past she hasn't bled this much. She is now not bleeding very much at all and the abdominal cramping and back pain has eased considerably. She denies any other acute symptoms. She states that although why she's been having miscarriages but they've not checked her progesterone or checked a thyroid according to the patient. Lower Pelvic Pain Score (Numeric/FACES): 5 - Related Data Allergies Allergy/AdvReac Type Severity Reaction Status Date / Time morphine Allergy Intermediate Airway Verified 11/11/18 00:28 Tightness adhesive Allergy Rash Verified 11/11/18 00:28 Home Meds: Home Meds DULoxetine [Cymbalta] 30 mg PO DAILY 11/11/18 [History] Past Medical History - Past Health History Medical/Surgical History: Denies Medical/Surgical History HEENT History: Reports: Other (See Below) Other HEENT History: wisdom Respiratory History: Reports: Asthma Gastrointestinal History: Reports: Other (See Below) Other Gastrointestinal History: pyloric stenosis surgery PAINTER AND BODY WORK 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: Reports: , Spontaneous Musculoskeletal History: Reports: Fibromyalgia Neurological History: Reports: Other (See Below) Other Neuro History: Insomnia, resolved with Psychiatric History: Reports: Anxiety, Other (See Below) Endocrine/Metabolic History: Reports: Obesity/BMI 30+, Vitamin D Deficiency - Past Surgical History HEENT Surgical History: Reports: Oral Surgery GI Surgical History: Reports: Other (See Below) Social & Family History - Family History Family Medical History: Noncontributory - Tobacco Use Smoking Status *Q: Never Smoker - Caffeine Use Caffeine Use: Reports: Soda - Recreational Drug Use Recreational Drug Use: No - Living Situation & Occupation Living situation: Reports: , with Spouse, with Family (1 child) 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) ED ROS GENERAL - Review of Systems Review Of Systems: See Below Constitutional: Denies: Fever, Chills HEENT: Reports: No Symptoms Respiratory: Reports: No Symptoms Cardiovascular: Reports: No Symptoms Endocrine: Reports: No Symptoms GI/Abdominal: Reports: Abdominal Pain : Reports: Discharge Musculoskeletal: Reports: No Symptoms Skin: Reports: No Symptoms Neurological: Reports: No Symptoms Psychiatric: Reports: No Symptoms Hematologic/Lymphatic: Reports: No Symptoms ED EXAM - Physical Exam Exam: See Below Exam Limited By: No Limitations General Appearance: Alert, WD/WN, No Apparent Distress Eye Exam: Bilateral Eye: Normal Inspection Ears: Normal External Exam Nose: Normal Inspection Throat/Mouth: Normal Inspection, Normal Lips, Normal Voice, No Airway Compromise Head: Normocephalic Neck: Supple Respiratory/Chest: No Respiratory Distress, Lungs Clear, Normal Breath Sounds Cardiovascular: Regular Rate, Rhythm, No Murmur GI/Abdominal Exam: Soft, Other (Mild suprapubic tenderness on palpation but no other abdominal tenderness) (Female) Exam: Other (The vaginal exam was deferred at this time until the ultrasound, if the ultrasound shows a concerned and a pelvic exam will be done) Back Exam: Normal Inspection, Full Range of Motion Extremities: Normal Inspection, Normal Range of Motion Neurological: Alert, Oriented Psychiatric: Normal Affect, Normal Mood Skin Exam: Warm, Dry Course - Vital Signs Last Recorded V/S: Last Vital Signs Temp 98.3 F 02/23/19 22:36 Pulse 65 02/23/19 22:36 Resp 20 02/23/19 22:36 BP 127/71 02/23/19 22:36 Pulse Ox 100 02/23/19 22:36 - Orders/Labs/Meds Orders: Active Orders 24 hr Category Date Time Status OB Transvaginal [US] Stat Exams 02/23/19 23:01 Taken Labs: Laboratory Tests 02/23/19 02/23/19 02/23/19 Range/Units 23:11 23:11 23:11 WBC 8.06 (3.98-10.04) K/mm3 RBC 4.85 (3.98-5.22) M/mm3 Hgb 11.8 (11.2-15.7) gm/dl Hct 36.8 (34.1-44.9) % MCV 75.9 L (79.4-94.8) fl MCH 24.3 L (25.6-32.2) pg MCHC 32.1 L (32.2-35.5) g/dl RDW Std Deviation 38.4 (36.4-46.3) fL Plt Count 331 D (182-369) K/mm3 MPV 10.4 (9.4-12.3) fl Neut % (Auto) 59.3 (34.0-71.1) % Lymph % (Auto) 29.8 (19.3-51.7) % [place] % (Auto) 8.2 (4.7-12.5) % Eos % (Auto) 2.1 (0.7-5.8) Baso % (Auto) 0.4 (0.1-1.2) % Neut # (Auto) 4.78 (1.56-6.13) K/mm3 Lymph # (Auto) 2.40 (1.18-3.74) K/mm3 [place] # (Auto) 0.66 H (0.24-0.36) K/mm3 Eos # (Auto) 0.17 (0.04-0.36) K/mm3 Baso # (Auto) 0.03 (0.01-0.08) K/mm3 TSH 3rd Generation 3.184 (0.358-3.74) uIU/mL Progesterone 1.27 ng/mL HCG, Quant < 1.0 mIU/mL - Radiology Interpretation Free Text/Narrative:: Ultrasound does not show any evidence of an intrauterine . - Re-Assessments/Exams Free Text/Narrative Re-Assessment/Exam: 02/24/19 01:07 I spoke to the patient regarding the ultrasound results. She has completed her miscarriage. With her beta-hCG being essentially 0, I would assume that this fetus a week or more ago. She also thought the same since she tells me she had symptoms but about a week prior to checking for many of those symptoms had resolved already. I encouraged her to follow up with her OB doctor by calling her on Tuesday for recheck. Departure - Departure Time of Disposition: 01:09 Disposition: Home, Self-Care 01 Condition: Good Clinical Impression: Complete miscarriage - Discharge Information *PRESCRIPTION DRUG MONITORING PROGRAM REVIEWED*: Not Applicable *COPY OF PRESCRIPTION DRUG MONITORING REPORT IN PATIENT BRITTANY: Not Applicable Referrals: Erma Edwards MD [Primary Care Provider] - Nola Barajas MD [Physician] - Forms: ED Department Discharge Additional Instructions: Gentle activity over the weekend with nothing strenuous, take Tylenol or ibuprofen as needed for abdominal cramps, drink lots of fluids and stay well- hydrated, follow up with your OB doctor by calling her on Tuesday and follow up this coming week, return to the ER if your symptoms worsen - My Orders Last 24 Hours: My Active Orders 02/23/19 23:01 OB Transvaginal [US] Stat - Assessment/Plan Last 24 Hours: My Active Orders 02/23/19 23:01 OB Transvaginal [US] Stat
--- NOTE | 2019-02-25 10:58 | US ---
First trimester obstetrical ultrasound: Multiple real-time images were obtained transvaginally. Uterus is retroverted. No intrauterine gestational sac is seen. No myometrial abnormality is seen. Small amount of fluid is seen within the cul-de-sac. Complicated hypoechoic area is noted within the right ovary measuring 2.2 cm. Left ovary is unremarkable. Impression: 1. No evidence of intrauterine gestational sac. Please correlate with beta hCG if patient has had miscarriage or whether findings represent too early to see. Differential also includes unlikely nonvisualized ectopic . 2. Small amount of free fluid believed to be physiologic. 4. 2.2 cm hypoechoic area within the right ovary most likely due to hemorrhagic cyst. Diagnostic code #3 I agree with preliminary report from [facility], finalized on 02/24/19, 1:44 AM Central Time
== END 2019-02-24 01:37 | disposition home or self-care (01) ==
LOC: JD.ED 22:27
DX: O03.9 Complete or unspecified spontaneous abortion without complication (principal); F41.9 Anxiety disorder, unspecified; E66.9 Obesity, unspecified; Z88.5 Allergy status to narcotic agent; Z91.09 Other allergy status, other than to drugs and biological substances
CPT/HCPCS: 36415; 76817; 76817-26; 84144; 84443; 84702; 85025; 99282; 99284-25

== ENCOUNTER 2019-08-27 11:12 | Emergency (ER) | payer BC ==
[2019-08-27 11:31] VITALS: PULSE 73
--- NOTE | 2019-08-27 12:08 | EDM.PDOC ---
ED HPI GENERAL MEDICAL PROBLEM - General Chief Complaint: Respiratory Problem Stated Complaint: CHEST PAIN/SOB Time Seen by Provider: 08/27/19 11:47 Source of Information: Reports: Patient, RN Notes Reviewed - History of Present Illness INITIAL COMMENTS - FREE TEXT/NARRATIVE: 24 year old female comes in with shortness of breath. Mildly short of breath off and on for the last day or 2, more short of breath this AM, now better on arrival to ED. She has not been coughing. No fever, chills, abd pain. She is about 5 wks . She has had some nausea, no vomiting, abd pain or cramping at this time. - Related Data Allergies Allergy/AdvReac Type Severity Reaction Status Date / Time morphine Allergy Intermediate Airway Verified 08/27/19 11:30 Tightness adhesive Allergy Rash Verified 08/27/19 11:30 Home Meds: Home Meds . [No Known Home Meds] 08/27/19 [History] Past Medical History - Past Health History Medical/Surgical History: Denies Medical/Surgical History HEENT History: Reports: Other (See Below) Other HEENT History: wisdom Respiratory History: Reports: Asthma Gastrointestinal History: Reports: Other (See Below) Other Gastrointestinal History: pyloric stenosis surgery ONLINE COMMUNITY MANAGER History: Reports: , Spontaneous Musculoskeletal History: Reports: Fibromyalgia Neurological History: Reports: Other (See Below) Other Neuro History: Insomnia, resolved with Psychiatric History: Reports: Anxiety, Other (See Below) Endocrine/Metabolic History: Reports: Obesity/BMI 30+, Vitamin D Deficiency - Past Surgical History HEENT Surgical History: Reports: Oral Surgery GI Surgical History: Reports: Other (See Below) Social & Family History - Family History Family Medical History: Noncontributory - Tobacco Use Smoking Status *Q: Never Smoker - Caffeine Use Caffeine Use: Reports: Soda - Living Situation & Occupation Living situation: Reports: , with Spouse, with Family (1 child) 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 Denies: Cough Cardiovascular: Denies: Chest Pain GI/Abdominal: Reports: Nausea. Denies: Abdominal Pain, Vomiting Musculoskeletal: Reports: No Symptoms Skin: Reports: No Symptoms Neurological: Reports: No Symptoms ED EXAM, GENERAL - Physical Exam Exam: See Below General Appearance: Alert, Moderate Distress Throat/Mouth: Normal Inspection, Normal Oropharynx Neck: Supple Respiratory/Chest: No Respiratory Distress, Lungs Clear, Normal Breath Sounds. No: Rhonchi, Wheezing Cardiovascular: Regular Rate, Rhythm GI/Abdominal: Soft, Non-Tender Extremities: Normal Inspection, Normal Range of Motion. No: Pedal Edema, Leg Pain, Increased Warmth, Redness Neurological: Alert, Oriented, No Motor/Sensory Deficits Skin Exam: Warm, Dry, Normal Color Course - Vital Signs Last Recorded V/S: Last Vital Signs Temp 98.4 F 08/27/19 12:23 Pulse 73 08/27/19 12:23 Resp 16 08/27/19 12:23 BP 113/50 L 08/27/19 12:23 Pulse Ox 97 08/27/19 12:23 - Re-Assessments/Exams Free Text/Narrative Re-Assessment/Exam: 08/28/19 07:30 lungs were clear at time of exam, no wheezing, sats 99 to 100 % Departure - Departure Time of Disposition: 12:07 Disposition: Home, Self-Care 01 Condition: Fair Clinical Impression: Dyspnea, First trimester - Discharge Information Instructions: First Trimester of , [id number] Referrals: Erma Edwards MD [Primary Care Provider] - Forms: ED Department Discharge Additional Instructions: At time of exam you are not wheezing, your lungs sound very clear, 02 sats running 99 to 100 %. Rest, Follow up clinic as needed, Return to ED as needed if symptoms worsening in any way. Sepsis Event Note - Evaluation Sepsis Screening Result: No Definite Risk - Focused Exam Date Exam was Performed: 08/28/19 Time Exam was Performed: 07:28
[2019-08-27 12:46] VITALS: BP 113/50
== END 2019-08-27 12:23 | disposition home or self-care (01) ==
LOC: JD.ED 11:12
DX: O99.89 Other specified diseases and conditions complicating pregnancy, childbirth and the puerperium (principal); R06.02 Shortness of breath; O99.211 Obesity complicating pregnancy, first trimester; Z88.5 Allergy status to narcotic agent; Z91.048 Other nonmedicinal substance allergy status; Z3A.01 Less than 8 weeks gestation of pregnancy
CPT/HCPCS: 99284

== ENCOUNTER 2019-10-08 19:03 | Emergency (ER) | payer BC, MEDICAID ==
[2019-10-08 19:17] VITALS: BP 136/85; PULSE 83
[2019-10-08] MEDS ORDERED: Sodium Chloride 0.9% 10 ML Syringe FLUSH PRN (19:38)
--- NOTE | 2019-10-08 19:46 | EDM.PDOC ---
<Minerva Fair - Last Filed: 10/08/19 22:50> ED HPI GENERAL MEDICAL PROBLEM - General Chief Complaint: Abdominal Pain Stated Complaint: ABDOMINAL PAIN Time Seen by Provider: 10/08/19 19:26 Source of Information: Reports: Patient History Limitations: Reports: No Limitations - History of Present Illness INITIAL COMMENTS - FREE TEXT/NARRATIVE: Patient is a 24-year-old female who presents with right upper quadrant and epigastric abdominal pain that started this morning. She is 11 weeks . She describes the pain as an aching and states that occasionally it is sharp. It is worse when she moves. She does have a history of acid reflux, however states that has not been too bad today. She has had no vomiting associated with this. She has had no pelvic cramping or bleeding. She saw her PATTERN HAND, Dr. Barajas, today. She states she mentioned it to her but she did not think much of it as she thought was probably just related to her . She states that the pain has not necessarily gotten much worse but that it is constant. She ate a small amount for dinner around 430 or 5. States she had some mashed potatoes and peaches. She denies a history of morning sickness with her . She denies any fever, chills, or diarrhea. She does still have her gallbladder and appendix. Right Upper Abdomen Pain Score (Numeric/FACES): 6 - Related Data Allergies Allergy/AdvReac Type Severity Reaction Status Date / Time morphine Allergy Intermediate Airway Verified 08/27/19 11:30 Tightness adhesive Allergy Rash Verified 08/27/19 11:30 Home Meds: Home Meds Albuterol Sulfate [Albuterol Sulfate Hfa] 1 puff INH QID PRN 10/08/19 [History] cephALEXin [Cephalexin] 500 mg PO Q6H 5 Days #20 capsule 10/08/19 [Rx] Past Medical History - Past Health History Medical/Surgical History: Denies Medical/Surgical History HEENT History: Reports: Other (See Below) Other HEENT History: wisdom Respiratory History: Reports: Asthma Gastrointestinal History: Reports: Other (See Below) Other Gastrointestinal History: pyloric stenosis surgery PATTERN HAND History: Reports: , Spontaneous Musculoskeletal History: Reports: Fibromyalgia Neurological History: Reports: Other (See Below) Other Neuro History: Insomnia, resolved with Psychiatric History: Reports: Anxiety, Other (See Below) Endocrine/Metabolic History: Reports: Obesity/BMI 30+, Vitamin D Deficiency - Infectious Disease History Infectious Disease History: Reports: Chicken Pox - Past Surgical History HEENT Surgical History: Reports: Oral Surgery GI Surgical History: Reports: Other (See Below) Social & Family History - Family History Family Medical History: Noncontributory - Tobacco Use Smoking Status *Q: Never Smoker Second Hand Smoke Exposure: No - Caffeine Use Caffeine Use: Reports: Soda - Living Situation & Occupation Living situation: Reports: , with Spouse, with Family (1 child) 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 Denies: Fever, Chills HEENT: Reports: No Symptoms Respiratory: Reports: No Symptoms Cardiovascular: Reports: No Symptoms Endocrine: Reports: No Symptoms GI/Abdominal: Reports: Abdominal Pain (RUQ), Decreased Appetite. Denies: Diarrhea, Nausea, Vomiting : Reports: No Symptoms. Denies: Dysuria, Flank Pain, Frequency Musculoskeletal: Reports: No Symptoms Skin: Reports: No Symptoms Neurological: Reports: No Symptoms Psychiatric: Reports: No Symptoms Hematologic/Lymphatic: Reports: No Symptoms Immunologic: Reports: No Symptoms ED EXAM, GI/ABD - Physical Exam Exam: See Below Exam Limited By: No Limitations General Appearance: Alert, WD/WN, No Apparent Distress Respiratory/Chest: No Respiratory Distress, Lungs Clear, Normal Breath Sounds, No Accessory Muscle Use, Chest Non-Tender Cardiovascular: Normal Peripheral Pulses, Regular Rate, Rhythm, No Edema, No Gallop, No JVD, No Murmur, No Rub GI/Abdominal Exam: Normal Bowel Sounds, Soft, No Organomegaly, No Distention, No Abnormal Bruit, No Mass, Pelvis Stable, Other (Right upper quadrant and epigastric tenderness. Positive Meza sign.) Back Exam: Normal Inspection, Full Range of Motion, NT Extremities: Normal Inspection, Normal Range of Motion, Non-Tender, Normal Capillary Refill, No Pedal Edema Neurological: Alert, Oriented, CN II-XII Intact, Normal Cognition, Normal Gait, Normal Reflexes, No Motor/Sensory Deficits Psychiatric: Normal Affect, Normal Mood Skin Exam: Warm, Dry, Intact, Normal Color, No Rash Course - Vital Signs Last Recorded V/S: Last Vital Signs Temp 36.4 C 10/08/19 19:12 Pulse 83 10/08/19 19:12 Resp 16 10/08/19 19:12 BP 136/85 10/08/19 19:12 Pulse Ox 95 10/08/19 19:12 - Orders/Labs/Meds Orders: Active Orders 24 hr Category Date Time Status Peripheral IV Care [RC] . DIRECTED Care 10/08/19 19:38 Active Abdomen Ltd [US] Stat Exams 10/08/19 21:38 Taken CULTURE URINE [RM] Stat Lab 10/08/19 22:10 Received Sodium Chloride 0.9% [Saline Flush] Med 10/08/19 19:38 Active 10 ml FLUSH ASDIRECTED PRN Peripheral IV Insertion Adult [OM.PC] Stat Oth 10/08/19 19:38 Ordered Medication Orders Sodium Chloride (Saline Flush) 10 ml FLUSH ASDIRECTED PRN PRN Reason: Keep Vein Open Last Admin: 10/08/19 20:38 Dose: 10 ml Labs: Laboratory Tests 10/08/19 10/08/19 10/08/19 Range/Units 20:49 20:49 21:40 WBC 11.37 H (3.98-10.04) K/mm3 RBC 4.83 (3.98-5.22) M/mm3 Hgb 12.8 (11.2-15.7) gm/dl Hct 38.9 (34.1-44.9) % MCV 80.5 D (79.4-94.8) fl MCH 26.5 (25.6-32.2) pg MCHC 32.9 (32.2-35.5) g/dl RDW Std Deviation 42.1 (36.4-46.3) fL Plt Count 229 D (182-369) K/mm3 MPV 11.4 (9.4-12.3) fl Neut % (Auto) 82.4 H (34.0-71.1) % Lymph % (Auto) 12.2 L (19.3-51.7) % Petroleum % (Auto) 4.6 L (4.7-12.5) % Eos % (Auto) 0.4 L (0.7-5.8) Baso % (Auto) 0.2 (0.1-1.2) % Neut # (Auto) 9.37 H (1.56-6.13) K/mm3 Lymph # (Auto) 1.39 (1.18-3.74) K/mm3 Pet[place] # (Auto) 0.52 H (0.24-0.36) K/mm3 Eos # (Auto) 0.05 (0.04-0.36) K/mm3 Baso # (Auto) 0.02 (0.01-0.08) K/mm3 Manual Slide Review Abnormal smear Sodium 137 (136-145) mEq/L Potassium 3.6 (3.5-5.1) mEq/L Chloride 103 (98-107) mEq/L Carbon Dioxide 21 (21-32) mEq/L Anion Gap 16.6 H (5-15) BUN 12 (7-18) mg/dL Creatinine 0.6 (0.55-1.02) mg/dL Est Cr Clr Drug Dosing 114.35 mL/min Estimated GFR (MDRD) > 60 (>60) mL/min BUN/Creatinine Ratio 20.0 H (14-18) Glucose 93 (74-106) mg/dL Calcium 8.3 L (8.5-10.1) mg/dL Total Bilirubin 0.6 (0.2-1.0) mg/dL AST 10 L (15-37) U/L ALT 16 (14-59) U/L Alkaline Phosphatase 31 L (46-116) U/L C-Reactive Protein 2.2 H* (<1.0) mg/dL Total Protein 7.0 (6.4-8.2) g/dl Albumin 3.1 L (3.4-5.0) g/dl Globulin 3.9 gm/dL Albumin/Globulin Ratio 0.8 L (1-2) Lipase 52 L (73-393) U/L Urine Color Yellow (Yellow) Urine Appearance Slt cloudy H (Clear) Urine pH 7.5 (5.0-8.0) Ur Specific [place] 1.020 (1.005-1.030) Urine Protein 1+ H (Negative) Urine Glucose (UA) Negative (Negative) Urine Ketones Negative (Negative) Urine Occult Blood Negative (Negative) Urine Nitrite Negative (Negative) Urine Bilirubin Negative (Negative) Urine Urobilinogen 1.0 (0.2-1.0) Ur Leukocyte Esterase 1+ H (Negative) Urine RBC 0-5 (0-5) /hpf Urine WBC 20-30 H (0-5) /hpf Ur Squamous Epith Cells 20-30 H (0-5) /hpf Urine Bacteria Many H (FEW) /hpf Urine Mucus Moderate H (FEW) /hpf Meds: Medications Generic Name Dose Route Start Last Admin Trade Name Freq PRN Reason Stop Dose Admin Sodium Chloride 10 ml 10/08/19 19:38 10/08/19 20:38 Saline Flush FLUSH 10 ml ASDIRECTED PRN Administration Keep Vein Open - Re-Assessments/Exams Free Text/Narrative Re-Assessment/Exam: 10/08/19 22:16 Hematology significant for WBC slightly elevated at 11.37, anion gap 16.6, CRP 2.2. Alk phos and lipase are low. Urinalysis was significant for 1+ leukocyte esterase, 20-30 WBCs, 20-30 squamous epithelial cells, many bacteria, and moderate mucus. Patient does have marked tenderness in the right upper quadrant. I have ordered an ultrasound of her gallbladder. She last ate around 430 or 5 this evening. 10/08/19 22:50 abdomen u/s is in progress at [facility]. I have sent an rx for keflex to clinic pharmacy for the asymptomatic bacteria. Case discussed with Dr. Bishop. further care and disposition will be assumed by Dr. Bishop. Departure - Departure Disposition: Home, Self-Care 01 Clinical Impression: GERD (gastroesophageal reflux disease), First trimester - Discharge Information Prescriptions: cephALEXin [Cephalexin] 500 mg PO Q6H 5 Days #20 capsule Referrals: Erma Edwards MD [Primary Care Provider] - Forms: ED Department Discharge Additional Instructions: You were seen in the emergency room for upper abdominal pain. Work-up in the ER included blood work, a urinalysis, and an ultrasound of your right upper quadrant. Your work-up was unremarkable. The ultrasound did not indicate that you are suffering from cholecystitis. A sample of your urine was sent for culture. The cause of your symptoms is not clearly understood, however, it is possible that your pain is due to GERD, which is known to be made worse with . We recommend that you take 1 tablet of [id number] famotidine (Pepcid) either once or twice a day, to see if that helps with your symptoms. We recommend that you follow-up with your PCP, Erma Edwards NP, on , , to check on your urine culture results, to make sure that you do not have a urinary tract infection. If any other problems, please do not hesitate to return to the ER. Sepsis Event Note - Evaluation Sepsis Screening Result: No Definite Risk - Focused Exam Vital Signs: Vital Signs Temp Pulse Resp BP Pulse Ox 10/08/19 19:12 36.4 C 83 16 136/85 95 Date Exam was Performed: 10/08/19 Time Exam was Performed: 22:50 <Adis Bishop - Last Filed: 10/08/19 23:31> Course - Re-Assessments/Exams Free Text/Narrative Re-Assessment/Exam: 10/08/19 23:22 Ultrasound of the right upper quadrant is read by Gigi as "No acute findings. No cholelithiasis or other sonographic evidence of acute cholecystitis." I will discharge the patient home with the recommendation that she begin taking [id number] famotidine (Pepcid) for treatment of GERD. Departure - Departure Time of Disposition: 23:25 Condition: Good - Discharge Information *PRESCRIPTION DRUG MONITORING PROGRAM REVIEWED*: Not Applicable *COPY OF PRESCRIPTION DRUG MONITORING REPORT IN PATIENT BRITTANY: Not Applicable Sepsis Event Note - Focused Exam Date Exam was Performed: 10/08/19 Time Exam was Performed: 23:22
[2019-10-08] MEDS ORDERED: Famotidine 20 MG Tab PO STA (23:27)
--- NOTE | 2019-10-09 05:33 | US ---
Limited abdominal ultrasound: Multiple real-time images of the upper right abdomen were obtained. Comparison: No prior abdominal ultrasound, previous CT abdomen and pelvis exam of 03/10/15 is available. Findings: Liver shows no focal parenchymal abnormality. Gallbladder shows no shadowing gallstones. No gallbladder wall thickening or biliary duct dilatation is seen. Right kidney shows no hydronephrosis or mass has a length of 11.3 cm. Pancreas is incompletely seen. Visualized portions of the pancreas are are within normal limits. Main portal vein was hepatopedal. Impression: 1. Nothing acute is seen on right upper quadrant abdominal ultrasound exam. Diagnostic code #1 This report was dictated in MDT
== END 2019-10-08 23:51 | disposition home or self-care (01) ==
LOC: JD.ED 19:03
DX: O99.611 Diseases of the digestive system complicating pregnancy, first trimester (principal); K21.9 Gastro-esophageal reflux disease without esophagitis; O99.511 Diseases of the respiratory system complicating pregnancy, first trimester; J45.909 Unspecified asthma, uncomplicated; O99.211 Obesity complicating pregnancy, first trimester; Z3A.11 11 weeks gestation of pregnancy; Z88.5 Allergy status to narcotic agent; Z91.048 Other nonmedicinal substance allergy status
CPT/HCPCS: 36415; 76705; 76705-26; 80053; 81001; 83690; 85025; 86140; 87086; 99284-25; A9270-GY

== ENCOUNTER 2020-04-15 08:22 | Inpatient (IN) | payer MEDICAID ==
[~2020-04-15 08:22] MED LIST: Bupivacaine 0.25% 10 ML SDV ONE
[2020-04-15] MEDS ORDERED: Sodium Chloride 0.9% 10 ML Syringe FLUSH PRN (08:41)
[2020-04-15] MEDS ORDERED: Ondansetron 4 MG/2 ML SDV IVPUSH PRN (08:41)
[2020-04-15] MEDS ORDERED: Nalbuphine 10 MG/1 ML Vial IVPUSH PRN (08:41)
[2020-04-15] MEDS ORDERED: Oxytocin/Lactated Ringers 10 UNIT/1,000 ML BAG IV SCH ×2 (08:45→13:00)
[2020-04-15] MEDS: Lactated Ringers 1,000 ML IV SCH ×3 (09:07→11:48)
[2020-04-15] MEDS ORDERED: ePHEDrine 50 MG/ML SDV IVPUSH PRN (09:53)
[2020-04-15] MEDS ORDERED: fentaNYL 100 MCG/2 ML SDV EPIDUR PRN (09:53)
[2020-04-15] MEDS ORDERED: diphenhydrAMINE 50 MG/ML SDV IVPUSH PRN (09:53)
[2020-04-15] MEDS ORDERED: Bupivacaine/fentaNYL/NS 100 ML Bag EPIDUR PRN (09:53)
--- NOTE | 2020-04-15 10:16 | PCM.LDHP ---
L&D History of Present Illness - General Date of Service: 04/15/20 Admit Problem/Dx: Patient Status Order with Admit Dx/Problem 04/15/20 08:41 Patient Status [ADT] Routine Admission Diagnosis/Problem Admission Diagnosis/Problem Source of Information: Patient History Limitations: Reports: No Limitations - History of Present Illness Introduction:: Patient is a 25 y/o at 38 1/7 wks who presents with SROM. Occurred this AM. Feeling painful contractions. Otherwise doing well Pain Score: 8 - Related Data Allergies/Adverse Reactions: Allergies Allergy/AdvReac Type Severity Reaction Status Date / Time morphine Allergy Intermediate Airway Verified 04/15/20 08:41 Tightness adhesive Allergy Rash Verified 04/15/20 08:41 Home Medications: Home Meds Pnv No.95/Ferrous Fum/Folic AC [ Tablet] 1 tab PO DAILY 02/03/20 [History] Past Medical History Respiratory History: Reports: Asthma Gastrointestinal History: Reports: GERD TUNNEL MINER History: Reports: , Spontaneous : 5 Para: 1 LMP (Approximate): Musculoskeletal History: Reports: Fibromyalgia Psychiatric History: Reports: Anxiety Endocrine/Metabolic History: Reports: Obesity/BMI 30+ - Infectious Disease History Infectious Disease History: Reports: Chicken Pox - Past Surgical History HEENT Surgical History: Reports: Oral Surgery GI Surgical History: Reports: Other (See Below) Other GI Surgeries/Procedures: Pyloric stenosis Social & Family History - Family History Family Medical History: No Pertinent Family History - Tobacco Use Tobacco Use Status *Q: Never Tobacco User Second Hand Smoke Exposure: No - Caffeine Use Caffeine Use: Reports: Soda - Alcohol Use Alcohol Use History: No - Recreational Drug Use Recreational Drug Use: No - Living Situation & Occupation Living situation: Reports: , with Spouse, with Family (1 child) 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&P Review of Systems - Review of Systems: Review Of Systems: See Below General: Reports: No Symptoms Pulmonary: Reports: No Symptoms Cardiovascular: Reports: No Symptoms Gastrointestinal: Reports: Abdominal Pain Genitourinary: Reports: No Symptoms Musculoskeletal: Reports: No Symptoms Psychiatric: Reports: No Symptoms Neurological: Reports: No Symptoms L&D Exam - Exam Exam: See Below - Vital Signs Vital Signs: Last Vital Signs Temp 36.7 C 04/15/20 08:41 Pulse 84 04/15/20 08:41 Resp 16 04/15/20 08:41 BP 115/60 04/15/20 08:41 Pulse Ox 95 04/15/20 08:41 Weight: 88.904 kg - OB Specific Contraction Intensity: Mild to Moderate Movement: Active Heart Tones: Present Heart Tones per Min: 140 Heart Rate (FHR) Variability: Moderate (6-25 bmp) Presentation: Vertex - Queen Score Queen Score Cervix Position: Anterior Queen Score Consistency: Soft Queen Score Effacement: >80% Queen Score Dilation: > 5 cm Queen Score 's Station: -2 Queen Score Total: 11 - Exam General: Alert, Oriented, Cooperative Lungs: Clear to Auscultation, Normal Respiratory Effort Cardiovascular: Regular Rate, Regular Rhythm GI/Abdominal Exam: Soft, Non-Tender Genitourinary: Normal external exam Extremities: Normal Inspection Skin: Warm, Dry, Intact - Patient Data Lab Results Last 24 hrs: Laboratory Results - last 24 hr 04/15/20 04/15/20 Range/Units 08:45 09:04 WBC 7.74 (3.98-10.04) K/mm3 RBC 4.22 (3.98-5.22) M/mm3 Hgb 10.4 L (11.2-15.7) gm/dl Hct 33.2 L (34.1-44.9) % MCV 78.7 L D (79.4-94.8) fl MCH 24.6 L (25.6-32.2) pg MCHC 31.3 L (32.2-35.5) g/dl RDW Std Deviation 39.8 (36.4-46.3) fL Plt Count 201 (182-369) K/mm3 MPV 11.0 (9.4-12.3) fl Neut % (Auto) 74.7 H (34.0-71.1) % Lymph % (Auto) 17.8 L (19.3-51.7) % [place] % (Auto) 6.5 (4.7-12.5) % Eos % (Auto) 0.8 (0.7-5.8) Baso % (Auto) 0.1 (0.1-1.2) % Neut # (Auto) 5.78 (1.56-6.13) K/mm3 Lymph # (Auto) 1.38 (1.18-3.74) K/mm3 [place] # (Auto) 0.50 H (0.24-0.36) K/mm3 Eos # (Auto) 0.06 (0.04-0.36) K/mm3 Baso # (Auto) 0.01 (0.01-0.08) K/mm3 SARS-CoV-2 RNA (ISAURO) Negative (NEGATIVE) Result Diagrams: 04/15/20 09:04 - Problem List (1) 38 weeks gestation of SNOMED Code(s): 12387049 ICD Code: Z3A.38 - 38 WEEKS GESTATION OF Status: Acute Current Visit: Yes (2) Spontaneous rupture of membranes SNOMED Code(s): 728323002 ICD Code: [id number] - Status: Acute Current Visit: Yes Problem List Initiated/Reviewed/Updated: Yes Orders Last 24hrs: Active Orders 24 hr Category Date Time Status Patient Status [ADT] Routine ADT 04/15/20 08:41 Active Activity as Tolerated [RC] PFP Care 04/15/20 08:41 Active Communication Order [RC] ASDIRECTED Care 04/15/20 08:41 Active Communication Order [RC] ASDIRECTED Care 04/15/20 09:53 Active Cooling Warming Measures [RC] ASDIRECTED Care 04/15/20 09:53 Active Heart Tones [RC] ASDIRECTED Care 04/15/20 08:41 Active Non Stress Test [RC] PER UNIT ROUTINE Care 04/15/20 08:41 Active Notify Provider [RC] ASDIRECTED Care 04/15/20 09:53 Active Notify Provider [RC] ASDIRECTED Care 04/15/20 09:53 Active Notify Provider [RC] PFP Care 04/15/20 08:41 Active Notify Provider [RC] PRN Care 04/15/20 08:41 Active Oxygen Therapy [RC] ASDIRECTED Care 04/15/20 09:53 Active Peripheral IV Care [RC] . DIRECTED Care 04/15/20 08:41 Active Pulse Oximetry [RC] ASDIRECTED Care 04/15/20 09:53 Active Vital Signs [RC] PER UNIT ROUTINE Care 04/15/20 08:41 Active Vital Signs [RC] Q1H Care 04/15/20 09:53 Active RAPID PLASMA REAGIN,RPR [CHEM] Routine Lab 04/15/20 09:04 Received TYPE AND SCREEN [BBK] Stat Lab 04/15/20 09:04 Received Bupivacaine/fentaNYL/NS [fentaNYL/Bupivacaine/NS 2 MCG- Med 04/15/20 09:53 Active 0.125% 100 ML] 100 ml EPIDUR ASDIRECTED PRN Lactated Ringers [Ringers, Lactated] 1,000 ml Med 04/15/20 08:45 Active IV ASDIRECTED Nalbuphine [Nubain] Med 04/15/20 08:41 Active 10 mg IVPUSH Q2H PRN Ondansetron [Zofran] Med 04/15/20 08:41 Active 4 mg IVPUSH Q4H PRN Oxytocin/Lactated Ringers [Pitocin in LR 10 Units/1,000 Med 04/15/20 08:45 Active ML] 10 unit in 1,000 ml IV .CONTINUOUS Sodium Chloride 0.9% [Saline Flush] Med 04/15/20 08:41 Active 10 ml FLUSH ASDIRECTED PRN diphenhydrAMINE [Benadryl] Med 04/15/20 09:53 Active 25 mg IVPUSH Q6H PRN ePHEDrine [ePHEDrine sulfate] Med 04/15/20 09:53 Active 5 mg IVPUSH ASDIRECTED PRN fentaNYL [Sublimaze] Med 04/15/20 09:53 Active 100 mcg EPIDUR Q3H PRN Electronic Heart Tones Ext w TOCO [WOMSER] Oth 04/15/20 08:41 Ordered Routine Electronic Heart Tones Internal [WOMSER] Per Unit Oth 04/15/20 08:41 Ordered Routine Peripheral IV Insertion Adult [OM.PC] Routine Oth 04/15/20 08:41 Ordered Resuscitation Status Routine Resus Stat 04/15/20 08:41 Ordered Medication Orders Diphenhydramine HCl (Benadryl) 25 mg IVPUSH Q6H PRN PRN Reason: pruritis Ephedrine Sulfate (Ephedrine Sulfate) 5 mg IVPUSH ASDIRECTED PRN PRN Reason: Hypotension Fentanyl (Sublimaze) 100 mcg EPIDUR Q3H PRN PRN Reason: Pain Last Admin: 04/15/20 10:09 Dose: 100 mcg Documented by: DUANE Fentanyl/Bupivacaine HCl (Fentanyl/Bupivacaine/Ns 2 Mcg-0.125% 100 Ml) 100 ml EPIDUR ASDIRECTED PRN PRN Reason: Pain Last Admin: 04/15/20 10:09 Dose: 100 ml Documented by: DUANE Oxytocin/Lactated Ringer's (Pitocin In Lr 10 Units/1,000 Ml) 10 unit in 1,000 mls @ 500 mls/hr IV .CONTINUOUS LUCY Lactated Ringer's (Ringers, Lactated) 1,000 mls @ 100 mls/hr IV ASDIRECTED LUCY Last Admin: 04/15/20 10:11 Dose: 500 mls/hr Documented by: Infusion: 04/15/20 10:11 Dose: 500 mls/hr Documented by: Admin: 04/15/20 09:07 Dose: 500 mls/hr Documented by: DUANE Nalbuphine HCl (Nubain) 10 mg IVPUSH Q2H PRN PRN Reason: Pain Ondansetron HCl (Zofran) 4 mg IVPUSH Q4H PRN PRN Reason: Nausea/Vomiting Sodium Chloride (Saline Flush) 10 ml FLUSH ASDIRECTED PRN PRN Reason: Keep Vein Open Assessment/Plan Comment:: * Labs * GBS negative * Pain management per patient preference * Anticipate
--- NOTE | 2020-04-15 10:36 | PCM.PREANE ---
Preanesthetic Assessment - Procedure Proposed Procedure: Epidural - Anesthesia/Transfusion/Family Hx Anesthesia History: Prior Anesthesia Without Reaction Family History of Anesthesia Reaction: No Transfusion History: No Prior Transfusion(s) Intubation History: Unknown - Review of Systems General: Fatigue Pulmonary: No Symptoms Cardiovascular: No Symptoms Gastrointestinal: Abdominal Pain (labor) Neurological: Numbness (right hand wrist) Other: Reports: None - Physical Assessment Vital Signs: Last Vital Signs Temp 36.7 C 04/15/20 08:41 Pulse 84 04/15/20 08:41 Resp 16 04/15/20 08:41 BP 115/60 04/15/20 08:41 Pulse Ox 95 04/15/20 08:41 Height: 1.57 m Weight: 88.904 kg ASA Class: 2 Mental Status: Alert & Oriented x3 Airway Class: Mallampati = 1 Dentition: Reports: Normal Dentition Thyro-Mental Finger Breadths: 3 Mouth Opening Finger Breadths: 3 ROM/Head Extension: Full Lungs: Clear to Auscultation, Normal Respiratory Effort Cardiovascular: Regular Rate, Regular Rhythm - Lab Values: Laboratory Last Values WBC 7.74 K/mm3 (3.98-10.04) 04/15/20 09:04 RBC 4.22 M/mm3 (3.98-5.22) 04/15/20 09:04 Hgb 10.4 gm/dl (11.2-15.7) L 04/15/20 09:04 Hct 33.2 % (34.1-44.9) L 04/15/20 09:04 MCV 78.7 fl (79.4-94.8) L D 04/15/20 09:04 MCH 24.6 pg (25.6-32.2) L 04/15/20 09:04 MCHC 31.3 g/dl (32.2-35.5) L 04/15/20 09:04 RDW Std Deviation 39.8 fL (36.4-46.3) 04/15/20 09:04 Plt Count 201 K/mm3 (182-369) 04/15/20 09:04 MPV 11.0 fl (9.4-12.3) 04/15/20 09:04 Neut % (Auto) 74.7 % (34.0-71.1) H 04/15/20 09:04 Lymph % (Auto) 17.8 % (19.3-51.7) L 04/15/20 09:04 [place] % (Auto) 6.5 % (4.7-12.5) 04/15/20 09:04 Eos % (Auto) 0.8 (0.7-5.8) 04/15/20 09:04 Baso % (Auto) 0.1 % (0.1-1.2) 04/15/20 09:04 Neut # (Auto) 5.78 K/mm3 (1.56-6.13) 04/15/20 09:04 Lymph # (Auto) 1.38 K/mm3 (1.18-3.74) 04/15/20 09:04 [place] # (Auto) 0.50 K/mm3 (0.24-0.36) H 04/15/20 09:04 Eos # (Auto) 0.06 K/mm3 (0.04-0.36) 04/15/20 09:04 Baso # (Auto) 0.01 K/mm3 (0.01-0.08) 04/15/20 09:04 SARS-CoV-2 RNA (ISAURO) Negative (NEGATIVE) 04/15/20 08:45 Blood Type A POSITIVE 04/15/20 09:04 Gel Antibody Screen Negative 04/15/20 09:04 - Allergies Allergies/Adverse Reactions: Allergies Allergy/AdvReac Type Severity Reaction Status Date / Time morphine Allergy Intermediate Airway Verified 04/15/20 08:41 Tightness adhesive Allergy Rash Verified 04/15/20 08:41 - Anesthesia Plan Pre-Op Medication Ordered: None - Acknowledgements Anesthesia Type Planned: Epidural Pt an Appropriate Candidate for the Planned Anesthesia: Yes Alternatives and Risks of Anesthesia Discussed w Pt/Guardian: Yes Pt/Guardian Understands and Agrees with Anesthesia Plan: Yes PreAnesthesia Questionnaire HEENT History: Reports: Other (See Below) Other HEENT History: wisdom Respiratory History: Reports: Asthma Gastrointestinal History: Reports: GERD Other Gastrointestinal History: pyloric stenosis surgery INVOICING SPECIALIST History: Reports: , Spontaneous Musculoskeletal History: Reports: Fibromyalgia Psychiatric History: Reports: Anxiety Endocrine/Metabolic History: Reports: Obesity/BMI 30+ - Infectious Disease History Infectious Disease History: Reports: Chicken Pox - Past Surgical History HEENT Surgical History: Reports: Oral Surgery GI Surgical History: Reports: Other (See Below) Other GI Surgeries/Procedures: Pyloric stenosis - SUBSTANCE USE Tobacco Use Status *Q: Never Tobacco User Second Hand Smoke Exposure: No Recreational Drug Use History: No - HOME MEDS Home Medications: Home Meds Pnv No.95/Ferrous Fum/Folic AC [ Tablet] 1 tab PO DAILY 02/03/20 [History] - CURRENT (IN HOUSE) MEDS Current Meds: Current Medications Diphenhydramine HCl (Benadryl) 25 mg IVPUSH Q6H PRN PRN Reason: pruritis Ephedrine Sulfate (Ephedrine Sulfate) 5 mg IVPUSH ASDIRECTED PRN PRN Reason: Hypotension Fentanyl (Sublimaze) 100 mcg EPIDUR Q3H PRN PRN Reason: Pain Last Admin: 04/15/20 10:09 Dose: 100 mcg Documented by: Fentanyl/Bupivacaine HCl (Fentanyl/Bupivacaine/Ns 2 Mcg-0.125% 100 Ml) 100 ml EPIDUR ASDIRECTED PRN PRN Reason: Pain Last Admin: 04/15/20 10:09 Dose: 100 ml Documented by: Oxytocin/Lactated Ringer's (Pitocin In Lr 10 Units/1,000 Ml) 10 unit in 1,000 mls @ 500 mls/hr IV .CONTINUOUS LUCY Lactated Ringer's (Ringers, Lactated) 1,000 mls @ 100 mls/hr IV ASDIRECTED LUCY Last Admin: 04/15/20 10:11 Dose: 500 mls/hr Documented by: Nalbuphine HCl (Nubain) 10 mg IVPUSH Q2H PRN PRN Reason: Pain Ondansetron HCl (Zofran) 4 mg IVPUSH Q4H PRN PRN Reason: Nausea/Vomiting Sodium Chloride (Saline Flush) 10 ml FLUSH ASDIRECTED PRN PRN Reason: Keep Vein Open
--- NOTE | 2020-04-15 14:52 | PCM.DEL ---
L & D Note - General Info Date of Service: 04/15/20 - Delivery Note Labor: Spontaneous Delivery Outcome: Livebirth Delivery Method: Spontaneous Vaginal Delivery-Single Delivery Mode: Spontaneous Presentation: Left Occiput Anterior (SHELLI) Nuchal Cord: None Anesthesia Type: Epidural Amniotic Fluid Description: Clear Episiotomy Type: None Laceration: None Placenta: Intact, Spontaneous Cord: 3 Vessels Estimated Blood Loss: 200 Resuscitation Needed: Yes [place]: Bulb Syringe, Stimulated, Warmed, [place] Used, Warmer Used Delivery Comments (Free Text/Narrative):: Patient found to be complete and began pushing. With maternal pushing effort head delivered from SHELLI presentation. With gentle downward traction there was not immediate delivery of anterior shoulder. Patient's head lowered and placed in deeper McRobert's fetus noted to restitute slightly to more direct OA Rotated baby some to GINA and then with gentle traction shoulders and body delivered. Infant placed on maternal abdomen. Cord clamped and cut. Cord blood obtained Placenta allowed time to separate and expelled intact. Inspection of perineum showed no lacerations - General Info Date of Service: 04/15/20 - Patient Data Vitals - Most Recent: Last Vital Signs Temp 36.7 C 04/15/20 08:41 Pulse 84 04/15/20 08:41 Resp 16 04/15/20 08:41 BP 115/60 04/15/20 08:41 Pulse Ox 95 04/15/20 08:41 Weight - Most Recent: 88.904 kg I&O - Last 24 Hours: Intake & Output 04/14/20 04/15/20 04/15/20 22:59 06:59 14:59 Intake Total 0 Balance 0 Lab Results Last 24 Hours: Laboratory Results - last 24 hr 04/15/20 04/15/20 04/15/20 Range/Units 08:45 09:04 09:04 WBC 7.74 (3.98-10.04) K/mm3 RBC 4.22 (3.98-5.22) M/mm3 Hgb 10.4 L (11.2-15.7) gm/dl Hct 33.2 L (34.1-44.9) % MCV 78.7 L D (79.4-94.8) fl MCH 24.6 L (25.6-32.2) pg MCHC 31.3 L (32.2-35.5) g/dl RDW Std Deviation 39.8 (36.4-46.3) fL Plt Count 201 (182-369) K/mm3 MPV 11.0 (9.4-12.3) fl Neut % (Auto) 74.7 H (34.0-71.1) % Lymph % (Auto) 17.8 L (19.3-51.7) % [place] % (Auto) 6.5 (4.7-12.5) % Eos % (Auto) 0.8 (0.7-5.8) Baso % (Auto) 0.1 (0.1-1.2) % Neut # (Auto) 5.78 (1.56-6.13) K/mm3 Lymph # (Auto) 1.38 (1.18-3.74) K/mm3 [place] # (Auto) 0.50 H (0.24-0.36) K/mm3 Eos # (Auto) 0.06 (0.04-0.36) K/mm3 Baso # (Auto) 0.01 (0.01-0.08) K/mm3 SARS-CoV-2 RNA (ISAURO) Negative (NEGATIVE) Blood Type A POSITIVE Gel Antibody Screen Negative Med Orders - Current: Current Medications Diphenhydramine HCl (Benadryl) 25 mg IVPUSH Q6H PRN PRN Reason: pruritis Ephedrine Sulfate (Ephedrine Sulfate) 5 mg IVPUSH ASDIRECTED PRN PRN Reason: Hypotension Fentanyl (Sublimaze) 100 mcg EPIDUR Q3H PRN PRN Reason: Pain Last Admin: 04/15/20 10:09 Dose: 100 mcg Documented by: Fentanyl/Bupivacaine HCl (Fentanyl/Bupivacaine/Ns 2 Mcg-0.125% 100 Ml) 100 ml EPIDUR ASDIRECTED PRN PRN Reason: Pain Last Admin: 04/15/20 10:09 Dose: 100 ml Documented by: Oxytocin/Lactated Ringer's (Pitocin In Lr 10 Units/1,000 Ml) 10 unit in 1,000 mls @ 500 mls/hr IV .CONTINUOUS LUCY Lactated Ringer's (Ringers, Lactated) 1,000 mls @ 100 mls/hr IV ASDIRECTED LUCY Last Admin: 04/15/20 11:48 Dose: 125 mls/hr Documented by: Oxytocin/Lactated Ringer's (Pitocin In Lr 10 Units/1,000 Ml) 10 unit in 1,000 mls @ 12 mls/hr IV TITRATE LUCY; Protocol Last Titration: 04/15/20 14:19 Dose: 6 munits/min, 36 mls/hr Documented by: Nalbuphine HCl (Nubain) 10 mg IVPUSH Q2H PRN PRN Reason: Pain Ondansetron HCl (Zofran) 4 mg IVPUSH Q4H PRN PRN Reason: Nausea/Vomiting Last Admin: 04/15/20 12:13 Dose: 4 mg Documented by: Sodium Chloride (Saline Flush) 10 ml FLUSH ASDIRECTED PRN PRN Reason: Keep Vein Open - Problem List & Annotations (1) 38 weeks gestation of SNOMED Code(s): 46677853 Code(s): Z3A.38 - 38 WEEKS GESTATION OF Status: Acute Current Visit: Yes (2) Spontaneous rupture of membranes SNOMED Code(s): 808766550 Code(s): VOZ1278 - Status: Acute Current Visit: Yes (3) Shoulder dystocia during labor and delivery SNOMED Code(s): 91361790 Code(s): O66.0 - OBSTRUCTED LABOR DUE TO SHOULDER DYSTOCIA Status: Acute Current Visit: Yes (4) Vaginal delivery SNOMED Code(s): 107462614 Code(s): O80 - ENCOUNTER FOR FULL-TERM UNCOMPLICATED DELIVERY Status: Acute Current Visit: Yes - Problem List Review Problem List Initiated/Reviewed/Updated: Yes - My Orders Last 24 Hours: My Active Orders 04/15/20 08:41 Patient Status [ADT] Routine Activity as Tolerated [RC] PFP Communication Order [RC] ASDIRECTED Heart Tones [RC] ASDIRECTED Non Stress Test [RC] PER UNIT ROUTINE Notify Provider [RC] PFP Notify Provider [RC] PRN Peripheral IV Care [RC] . DIRECTED Vital Signs [RC] PER UNIT ROUTINE Nalbuphine [Nubain] 10 mg IVPUSH Q2H PRN Ondansetron [Zofran] 4 mg IVPUSH Q4H PRN Sodium Chloride 0.9% [Saline Flush] 10 ml FLUSH ASDIRECTED PRN Electronic Heart Tones Ext w TOCO [WOMSER] Routine Electronic Heart Tones Internal [WOMSER] Per Unit Routine Peripheral IV Insertion Adult [OM.PC] Routine Resuscitation Status Routine 04/15/20 08:45 Lactated Ringers [Ringers, Lactated] 1,000 ml IV ASDIRECTED Oxytocin/Lactated Ringers [Pitocin in LR 10 Units/1,000 ML] 10 unit in 1,000 ml IV .CONTINUOUS 04/15/20 09:04 RAPID PLASMA REAGIN,RPR [CHEM] Routine 04/15/20 Lunch Regular Diet [DIET] 04/15/20 13:00 Oxytocin/Lactated Ringers [Pitocin in LR 10 Units/1,000 ML] 10 unit in 1,000 ml IV TITRATE 04/15/20 14:50 Patient Status Manage Transfer [TRANSFER] Routine - Assessment Assessment:: PPD#0 - Plan Plan:: * Routine cares * Breast feeding * Discharge home in 1-2 days
[2020-04-15] MEDS ORDERED: Ibuprofen 600 MG Tab PO PRN (15:14)
[2020-04-15] MEDS ORDERED: Witch Hazel Medicated Pads 40/Jar TOP PRN (15:14)
[2020-04-15] MEDS ORDERED: Acetaminophen 325 MG Tab PO PRN (15:14)
[2020-04-15] MEDS ORDERED: Docusate Sodium 100 MG Cap PO PRN (15:14)
[2020-04-15] MEDS ORDERED: Benzocaine/Menthol 20%-0.5% Spray 56 GM Canister TOP PRN (15:14)
--- NOTE | 2020-04-16 07:03 | PCM.DCSUM1 ---
Discharge Summary - Discharge Data Discharge Date: 04/16/20 Discharge Disposition: Home, Self-Care 01 Condition: Good - Referral to Home Health Primary Care Physician: Nola Barajas MD - Discharge Diagnosis/Problem(s) (1) 38 weeks gestation of SNOMED Code(s): 87160896 ICD Code: Z3A.38 - 38 WEEKS GESTATION OF Status: Acute Current Visit: Yes (2) Spontaneous rupture of membranes SNOMED Code(s): 976923265 ICD Code: [id number] - Status: Acute Current Visit: Yes (3) Shoulder dystocia during labor and delivery SNOMED Code(s): 15617108 ICD Code: O66.0 - OBSTRUCTED LABOR DUE TO SHOULDER DYSTOCIA Status: Acute Current Visit: Yes (4) Vaginal delivery SNOMED Code(s): 802045400 ICD Code: O80 - ENCOUNTER FOR FULL-TERM UNCOMPLICATED DELIVERY Status: Acute Current Visit: Yes - Patient Summary/Data Complications: None Consults: None Recommended Follow-up Testing/Procedures: Follow up in 3 weeks for check Hospital Course: 25 y/o at 38 1/7 wks who presented with SROM. Progressed well to complete dilation. Underwent an uncomplicated . See delivery note. did well and was discharged home on PPD#1 - Patient Instructions Diet: Regular Diet as Tolerated Activity: As Tolerated Activity, Other: Pelvic rest for 6 weeks Driving: May Drive Today Showering/Bathing: May Shower Showering/Bathing, Other: May Bathe Notify Provider of: Fever, Increased Pain, Swelling and Redness, Drainage, Nausea and/or Vomiting - Discharge Plan *PRESCRIPTION DRUG MONITORING PROGRAM REVIEWED*: No *COPY OF PRESCRIPTION DRUG MONITORING REPORT IN PATIENT BRITTANY: No Home Medications: Home Meds Pnv No.95/Ferrous Fum/Folic AC [ Tablet] 1 tab PO DAILY 02/03/20 [History] Ibuprofen [Motrin] 600 mg PO Q6H PRN tablet 04/15/20 [Rx] Referrals: Nola Barajas MD [Primary Care Provider] - (3 weeks for check ) - Discharge Summary/Plan Comment DC Time >30 min.: No - Patient Data Weight - Most Recent: 88.904 kg
--- NOTE | 2020-04-16 07:03 | PCM.PNPP ---
- General Info Date of Service: 04/16/20 Functional Status: Reports: Pain Controlled, Tolerating Diet, Ambulating, Urinating - Review of Systems General: Reports: No Symptoms Pulmonary: Reports: No Symptoms Cardiovascular: Reports: No Symptoms Gastrointestinal: Reports: No Symptoms Genitourinary: Reports: No Symptoms Musculoskeletal: Reports: Back Pain Skin: Reports: No Symptoms - Patient Data Vital Signs - Most Recent: Last Vital Signs Temp 36.7 C 04/16/20 02:33 Pulse 81 04/16/20 02:33 Resp 16 04/16/20 02:33 BP 120/68 04/16/20 02:33 Pulse Ox 98 04/16/20 02:33 Weight - Most Recent: 88.904 kg Lab Results - Last 24 Hours: Laboratory Results - last 24 hr 04/15/20 04/15/20 04/15/20 Range/Units 08:45 09:04 09:04 WBC 7.74 (3.98-10.04) K/mm3 RBC 4.22 (3.98-5.22) M/mm3 Hgb 10.4 L (11.2-15.7) gm/dl Hct 33.2 L (34.1-44.9) % MCV 78.7 L D (79.4-94.8) fl MCH 24.6 L (25.6-32.2) pg MCHC 31.3 L (32.2-35.5) g/dl RDW Std Deviation 39.8 (36.4-46.3) fL Plt Count 201 (182-369) K/mm3 MPV 11.0 (9.4-12.3) fl Neut % (Auto) 74.7 H (34.0-71.1) % Lymph % (Auto) 17.8 L (19.3-51.7) % [place] % (Auto) 6.5 (4.7-12.5) % Eos % (Auto) 0.8 (0.7-5.8) Baso % (Auto) 0.1 (0.1-1.2) % Neut # (Auto) 5.78 (1.56-6.13) K/mm3 Lymph # (Auto) 1.38 (1.18-3.74) K/mm3 [place] # (Auto) 0.50 H (0.24-0.36) K/mm3 Eos # (Auto) 0.06 (0.04-0.36) K/mm3 Baso # (Auto) 0.01 (0.01-0.08) K/mm3 RPR Non-reactive (NONREACTIVE) SARS-CoV-2 RNA (ISAURO) Negative (NEGATIVE) Blood Type Gel Antibody Screen 04/15/20 Range/Units 09:04 WBC (3.98-10.04) K/mm3 RBC (3.98-5.22) M/mm3 Hgb (11.2-15.7) gm/dl Hct (34.1-44.9) % MCV (79.4-94.8) fl MCH (25.6-32.2) pg MCHC (32.2-35.5) g/dl RDW Std Deviation (36.4-46.3) fL Plt Count (182-369) K/mm3 MPV (9.4-12.3) fl Neut % (Auto) (34.0-71.1) % Lymph % (Auto) (19.3-51.7) % [place] % (Auto) (4.7-12.5) % Eos % (Auto) (0.7-5.8) Baso % (Auto) (0.1-1.2) % Neut # (Auto) (1.56-6.13) K/mm3 Lymph # (Auto) (1.18-3.74) K/mm3 [place] # (Auto) (0.24-0.36) K/mm3 Eos # (Auto) (0.04-0.36) K/mm3 Baso # (Auto) (0.01-0.08) K/mm3 RPR (NONREACTIVE) SARS-CoV-2 RNA (ISAURO) (NEGATIVE) Blood Type A POSITIVE Gel Antibody Screen Negative Med Orders - Current: Current Medications Acetaminophen (Tylenol) 650 mg PO Q4H PRN PRN Reason: mild pain or fever Benzocaine/Menthol (Dermoplast Pain Relief [place]) 0 gm TOP ASDIRECTED PRN PRN Reason: Perineal Comfort Measure Last Admin: 04/15/20 16:34 Dose: 1 can Documented by: Docusate Sodium (Colace) 100 mg PO BID PRN PRN Reason: Constipation Ibuprofen (Motrin) 600 mg PO Q6H PRN PRN Reason: Mild pain or fever Last Admin: 04/16/20 02:27 Dose: 600 mg Documented by: Donna Lucio ([place] [facility]) 1 pad TOP ASDIRECTED PRN PRN Reason: Perineal Comfort Measure Last Admin: 04/15/20 16:34 Dose: 1 tub Documented by: Discontinued Medications Diphenhydramine HCl (Benadryl) 25 mg IVPUSH Q6H PRN PRN Reason: pruritis Ephedrine Sulfate (Ephedrine Sulfate) 5 mg IVPUSH ASDIRECTED PRN PRN Reason: Hypotension Fentanyl (Sublimaze) 100 mcg EPIDUR Q3H PRN PRN Reason: Pain Last Admin: 04/15/20 10:09 Dose: 100 mcg Documented by: Fentanyl/Bupivacaine HCl (Fentanyl/Bupivacaine/Ns 2 Mcg-0.125% 100 Ml) 100 ml EPIDUR ASDIRECTED PRN PRN Reason: Pain Last Admin: 04/15/20 10:09 Dose: 100 ml Documented by: Oxytocin/Lactated Ringer's (Pitocin In Lr 10 Units/1,000 Ml) 10 unit in 1,000 mls @ 500 mls/hr IV .CONTINUOUS LUCY Lactated Ringer's (Ringers, Lactated) 1,000 mls @ 100 mls/hr IV ASDIRECTED LUCY Last Admin: 04/15/20 11:48 Dose: 125 mls/hr Documented by: Oxytocin/Lactated Ringer's (Pitocin In Lr 10 Units/1,000 Ml) 10 unit in 1,000 mls @ 12 mls/hr IV TITRATE LUCY; Protocol Last Titration: 04/15/20 14:40 Dose: 166.5 munits/min, 999 mls/hr Documented by: Nalbuphine HCl (Nubain) 10 mg IVPUSH Q2H PRN PRN Reason: Pain Ondansetron HCl (Zofran) 4 mg IVPUSH Q4H PRN PRN Reason: Nausea/Vomiting Last Admin: 04/15/20 12:13 Dose: 4 mg Documented by: Sodium Chloride (Saline Flush) 10 ml FLUSH ASDIRECTED PRN PRN Reason: Keep Vein Open - Infant Interaction Disposition, : [place] in Room with Family Interaction: Holding Feeding: Breastfed Infant; Nursed Well Support Person: - Recovery Exam Fundal Tone: Firm Fundal Level: 1 Fingerbreadths Below Umbilicus Fundal Placement: Midline Lochia Amount: Small Lochia Color: Rubra/Red Perineum Description: Intact, Minimal Bruising/Swelling Episiotomy/Laceration: None Bladder Status: Voiding Urinary Elimination: Voided - Exam General: Alert, Oriented, Cooperative GI/Abdominal Exam: Soft, Non-Tender Extremities: Normal Inspection Skin: Warm, Dry, Intact - Problem List & Annotations (1) 38 weeks gestation of SNOMED Code(s): 42535755 Code(s): Z3A.38 - 38 WEEKS GESTATION OF Status: Acute Current Visit: Yes (2) Spontaneous rupture of membranes SNOMED Code(s): 894612882 Code(s): FZD2685 - Status: Acute Current Visit: Yes (3) Shoulder dystocia during labor and delivery SNOMED Code(s): 27408495 Code(s): O66.0 - OBSTRUCTED LABOR DUE TO SHOULDER DYSTOCIA Status: Acute Current Visit: Yes (4) Vaginal delivery SNOMED Code(s): 005737771 Code(s): O80 - ENCOUNTER FOR FULL-TERM UNCOMPLICATED DELIVERY Status: Acute Current Visit: Yes - Problem List Review Problem List Initiated/Reviewed/Updated: Yes - My Orders Last 24 Hours: My Active Orders 04/15/20 08:41 Resuscitation Status Routine 04/15/20 15:14 Acetaminophen [TylenoL] 650 mg PO Q4H PRN Benzocaine/Menthol [Dermoplast Pain Relief [place]] See Dose Instructions TOP ASDIRECTED PRN Docusate Sodium [Colace] 100 mg PO BID PRN Ibuprofen [Motrin] 600 mg PO Q6H PRN witch Chay [T[place]] 1 pad TOP ASDIRECTED PRN Heat Therapy [OM.PC] PRN 04/15/20 15:14 Activity as Tolerated [RC] PER UNIT ROUTINE Vital Signs [RC] 03,09,15,21 Assess Lochia [WOMSER] Per Unit Routine Assess Uterine Involution [WOMSER] Per Unit Routine Breast Pump [WOMSER] Per Unit Routine Ice Therapy [OM.PC] Per Unit Routine Perineal Care [OM.PC] Per Unit Routine Peripheral IV Discontinue [OM.PC] Routine Sitz Bath [OM.PC] Per Unit Routine 04/15/20 Dinner Regular Diet [DIET] 04/16/20 06:59 Ready for Discharge [RC] PER UNIT ROUTINE 04/16/20 15:14 Heat Therapy [OM.PC] PRN - Assessment Assessment:: PPD#1 - Plan Plan:: * Routine cares * Breast feeding * Discharge home today
[2020-04-16 16:54] VITALS: BP 118/79; PULSE 77
== END 2020-04-16 16:37 | disposition home or self-care (01) | DRG 807 ==
LOC: JD.OB 08:22 → JD.OBCHECK 08:22 → JD.OB 08:41 → JD.OBCHECK 08:41 → OBSVTOIN 14:39 → JD.OB 14:40
PROVIDERS: ADMIT Obstetrics & Gynecology; ATTEND Obstetrics & Gynecology
PROC: 10E0XZZ Delivery of Products of Conception, External Approach (ICD-10-PCS; principal; 2020-04-15)
PROC: 3E0R3BZ Introduction of Anesthetic Agent into Spinal Canal, Percutaneous Approach (ICD-10-PCS; 2020-04-15)
DX: O66.0 Obstructed labor due to shoulder dystocia (principal); Z37.0 Single live birth; Z3A.38 38 weeks gestation of pregnancy; Z88.5 Allergy status to narcotic agent; Z91.048 Other nonmedicinal substance allergy status; Z20.828 Contact with and (suspected) exposure to other viral communicable diseases
CPT/HCPCS: 01967; 36415; 51702; 59025; 59409; 85025; 86592; 86850; 86900; 86901; A9270-GY; J2405; J2590; J3010; J3490; J7120; U0002

== ENCOUNTER 2021-09-09 06:58 | Inpatient (IN) | payer BC, MEDICAID ==
[2021-09-09] MEDS ORDERED: Acetaminophen 325 MG Tab PO PRN ×2 (07:07→12:39)
[2021-09-09] MEDS ORDERED: Nalbuphine 10 MG/1 ML Vial IVPUSH PRN (07:07)
[2021-09-09] MEDS ORDERED: Ondansetron 4 MG/2 ML SDV IVPUSH PRN (07:07)
[2021-09-09] MEDS ORDERED: Calcium Carbonate 500 MG Tab.Chew PO PRN (07:07)
[2021-09-09] MEDS ORDERED: Lidocaine 1% 50 ML MDV INJECT PRN (07:07)
[2021-09-09] MEDS ORDERED: Oxytocin/Lactated Ringers 10 UNIT/1,000 ML BAG IV SCH ×2 (07:15)
[2021-09-09] MEDS: Lactated Ringers 1,000 ML IV SCH ×2 (08:15→09:19)
[2021-09-09] MEDS ORDERED: Bupivacaine/fentaNYL/NS 100 ML Bag EPIDUR PRN (08:35)
[2021-09-09] MEDS ORDERED: ePHEDrine 50 MG/ML SDV IVPUSH PRN (08:35)
[2021-09-09] MEDS ORDERED: diphenhydrAMINE 50 MG/ML SDV IVPUSH PRN (08:35)
[2021-09-09] MEDS ORDERED: fentaNYL 100 MCG/2 ML SDV EPIDUR PRN (08:35)
[2021-09-09] MEDS ORDERED: Ibuprofen 600 MG Tab PO PRN (12:39)
[2021-09-09] MEDS ORDERED: Witch Hazel Medicated Pads 40/Jar TOP PRN (12:39)
[2021-09-09] MEDS ORDERED: Docusate Sodium 100 MG Cap PO PRN (12:39)
[2021-09-09] MEDS ORDERED: Benzocaine/Menthol 20%-0.5% Spray 78 GM Cannister TOP PRN (12:39)
[2021-09-10] MEDS ORDERED: Bupivacaine 0.25% 10 ML SDV ONE
[2021-09-10 09:29] VITALS: BP 110/64; PULSE 65
== END 2021-09-10 13:09 | disposition home or self-care (01) | DRG 560 ==
LOC: JD.OB 06:58 → OBSVTOIN 11:44 → JD.OB 11:45
PROVIDERS: ADMIT Obstetrics & Gynecology; ATTEND Obstetrics & Gynecology
PROC: 10E0XZZ Delivery of Products of Conception, External Approach (ICD-10-PCS; principal; 2021-09-09)
PROC: 10907ZC Drainage of Amniotic Fluid, Therapeutic from Products of Conception, Via Natural or Artificial Opening (ICD-10-PCS; 2021-09-09)
PROC: 3E0R3BZ Introduction of Anesthetic Agent into Spinal Canal, Percutaneous Approach (ICD-10-PCS; 2021-09-09)
DX: O99.52 Diseases of the respiratory system complicating childbirth (principal); O99.62 Diseases of the digestive system complicating childbirth; O99.344 Other mental disorders complicating childbirth; O99.214 Obesity complicating childbirth; Z37.0 Single live birth; K21.9 Gastro-esophageal reflux disease without esophagitis; F90.9 Attention-deficit hyperactivity disorder, unspecified type; J45.909 Unspecified asthma, uncomplicated; F41.9 Anxiety disorder, unspecified; M79.7 Fibromyalgia; Z88.5 Allergy status to narcotic agent; Z79.82 Long term (current) use of aspirin; Z79.899 Other long term (current) drug therapy; Z3A.39 39 weeks gestation of pregnancy; Z88.8 Allergy status to other drugs, medicaments and biological substances
CPT/HCPCS: 36415; 51702; 59025; 59409; 85025; 86592; 86850; 86900; 86901; A9270-GY; J2370; J2405; J2590; J3010; J3490; J7120

== ENCOUNTER 2024-04-01 19:27 | Inpatient (IN) | payer OTHER ==
[~2024-04-01 19:27] MED LIST changes: -Bupivacaine 0.25% 10 ML SDV ONE; +Ropivacaine 0.2% PF 2 MG/ML 20 ML SDV ONE
[2024-04-01] MEDS ORDERED: Ondansetron 4 MG/2 ML SDV IVPUSH PRN (19:54)
[2024-04-01] MEDS ORDERED: Nalbuphine 10 MG/1 ML Vial IVPUSH PRN (19:54)
[2024-04-01] MEDS ORDERED: Lidocaine 1% 50 ML MDV INJECT PRN (19:54)
[2024-04-01] MEDS ORDERED: Sodium Chloride 0.9% 10 ML Syringe FLUSH PRN (19:54)
[2024-04-01] MEDS ORDERED: Oxytocin/0.9 % Sodium Chloride 30 UNIT/500 ML BAG IV SCH (20:00)
[2024-04-01 20:10] LABS: BASOPHILS PERCENT AUTO 0.2 % (0.0-1.0); EOSINOPHILS ABSOLUTE AUTO 0.1 K/mm3 (0.0-0.4); EOSINOPHILS PERCENT AUTO 0.6 % (0.0-6.0); HEMATOCRIT 31.8 % (37.0-47.0); HEMOGLOBIN 10.3 gm/dl (12.0-16.0); IMMATURE GRAN ABSOLUTE AUTO 0.03 K/mm3 (0.00-0.05); IMMATURE GRAN PERCENT AUTO 0.4 % (0.0-0.4); LYMPHOCYTES ABSOLUTE AUTO 1.8 K/mm3 (1.0-4.8); LYMPHOCYTES PERCENT AUTO 21.5 % (24.0-44.0); MEAN CORPUSCULAR HEMOGLOBIN 25.6 pg (28.0-32.0); MEAN CORPUSCULAR HGB CONC 32.4 g/dl (32.0-36.0); MEAN CORPUSCULAR VOLUME 79.1 fl (83.0-99.0); MONOCYTES ABSOLUTE AUTO 0.6 K/mm3 (0.0-0.8); MONOCYTES PERCENT AUTO 7.7 % (0.0-8.0); NEUTROPHILS ABSOLUTE AUTO 5.8 K/mm3 (1.8-7.7); NEUTROPHILS PERCENT AUTO 69.6 % (41.0-71.0); PLATELET COUNT,PLT 237 K/mm3 (150-400); RED BLOOD CELL COUNT 4.02 M/mm3 (4.10-5.30); WHITE BLOOD CELL COUNT,WBC 8.33 K/mm3 (3.9-11.3)
[2024-04-01] MEDS ORDERED: diphenhydrAMINE 50 MG/ML SDV IVPUSH PRN (21:02)
[2024-04-01] MEDS ORDERED: ePHEDrine 50 MG/ML SDV IVPUSH PRN (21:02)
[2024-04-01] MEDS: fentaNYL 100 MCG/2 ML SDV EPIDUR PRN (21:07)
[2024-04-01] MEDS: Bupivacaine/fentaNYL/NS 100 ML Bag EPIDUR PRN (21:10)
[2024-04-01] MEDS: Lactated Ringers 1,000 ML IV SCH (21:10)
[2024-04-01] MEDS: Sodium Chloride 0.9% 10 ML Syringe FLUSH SCH (21:43)
[2024-04-02] MEDS: Oxytocin/0.9 % Sodium Chloride 30 UNIT/500 ML BAG IV SCH (00:03)
[2024-04-02] MEDS ORDERED: Witch Hazel Medicated Pads 40/Jar TOP PRN (00:43)
[2024-04-02] MEDS ORDERED: Acetaminophen 325 MG Tab PO PRN (00:43)
[2024-04-02] MEDS ORDERED: Docusate Sodium 100 MG Cap PO PRN (00:43)
[2024-04-02] MEDS ORDERED: Benzocaine/Menthol 20%-0.5% Spray 78 GM Cannister TOP PRN (00:43)
[2024-04-02] MEDS: diphenhydrAMINE 50 MG/ML SDV IVPUSH ONE (02:15)
[2024-04-02] MEDS: Ibuprofen 800 MG Tab PO SCH ×2 (02:16→10:28)
[2024-04-02] MEDS: Prenatal Multivitamin with Calcium/Folic Acid/Iron Tab PO SCH (10:28)
[2024-04-03 09:32] VITALS: BP 132/77; PULSE 84
== END 2024-04-03 09:22 | disposition home or self-care (01) | DRG 807 ==
LOC: JD.OBCHECK 19:27 → JD.OB 19:29 → JD.OBCHECK 19:53 → JD.OB 19:54 → OBSVTOIN 04-02 00:15 → JD.OB 04-02 00:16
PROVIDERS: ADMIT Obstetrics & Gynecology; ATTEND Obstetrics & Gynecology
PROC: 10E0XZZ Delivery of Products of Conception, External Approach (ICD-10-PCS; principal; 2024-04-02)
PROC: 10907ZC Drainage of Amniotic Fluid, Therapeutic from Products of Conception, Via Natural or Artificial Opening (ICD-10-PCS; 2024-04-02)
PROC: 3E0S3BZ Introduction of Anesthetic Agent into Epidural Space, Percutaneous Approach (ICD-10-PCS; 2024-04-02)
PROC: 00HU33Z Insertion of Infusion Device into Spinal Canal, Percutaneous Approach (ICD-10-PCS; 2024-04-02)
DX: O99.02 Anemia complicating childbirth (principal); Z37.0 Single live birth; O99.52 Diseases of the respiratory system complicating childbirth; J45.909 Unspecified asthma, uncomplicated; O99.62 Diseases of the digestive system complicating childbirth; K21.9 Gastro-esophageal reflux disease without esophagitis; Z3A.38 38 weeks gestation of pregnancy; Z88.5 Allergy status to narcotic agent; Z86.16 Personal history of COVID-19; Z98.890 Other specified postprocedural states
CPT/HCPCS: 01967; 36415; 51701; 59025; 59409; 85025; 86592; 86850; 86900; 86901; A9270-GY; J1200; J2795; J3010; J3490; J7120; J7999

== ENCOUNTER 2025-02-09 23:42 | Emergency (ER) | payer OTHER ==
[2025-02-09 23:58] VITALS: BP 124/82; PULSE 72
== END 2025-02-10 00:44 | disposition home or self-care (01) ==
LOC: JD.ED 23:42
DX: L50.9 Urticaria, unspecified (principal); J45.909 Unspecified asthma, uncomplicated; K21.9 Gastro-esophageal reflux disease without esophagitis; Z88.5 Allergy status to narcotic agent; Z91.048 Other nonmedicinal substance allergy status; Z79.899 Other long term (current) drug therapy; Z86.16 Personal history of COVID-19
CPT/HCPCS: 99283; J7512

== ENCOUNTER 2025-03-04 19:19 | Emergency (ER) | payer OTHER ==
[2025-03-04 20:05] VITALS: BP 143/87; PULSE 82
[2025-03-04 20:36] LABS: BASOPHILS ABSOLUTE AUTO 0.1 K/mm3 (0.0-0.2); BASOPHILS PERCENT AUTO 0.6 % (0.0-1.0); EOSINOPHILS ABSOLUTE AUTO 0.2 K/mm3 (0.0-0.4); EOSINOPHILS PERCENT AUTO 2.9 % (0.0-6.0); IMMATURE GRAN ABSOLUTE AUTO 0.03 K/mm3 (0.00-0.05); IMMATURE GRAN PERCENT AUTO 0.4 % (0.0-0.4); LYMPHOCYTES ABSOLUTE AUTO 1.9 K/mm3 (1.0-4.8); LYMPHOCYTES PERCENT AUTO 22.2 % (24.0-44.0); MEAN PLATELET VOLUME 10.9 fl (9.4-12.3); MONOCYTES ABSOLUTE AUTO 0.5 K/mm3 (0.0-0.8); MONOCYTES PERCENT AUTO 6.3 % (0.0-8.0); NEUTROPHILS ABSOLUTE AUTO 5.7 K/mm3 (1.8-7.7); NEUTROPHILS PERCENT AUTO 67.6 % (41.0-71.0); NRBC ABSOLUTE 0.00 (0.00-0.02); NRBC PERCENT 0.0 % (0.0-0.2); PLATELET COUNT,PLT 244 K/mm3 (150-400); RED BLOOD CELL COUNT 4.53 M/mm3 (4.10-5.30); WHITE BLOOD CELL COUNT,WBC 8.36 K/mm3 (3.9-11.3)
[2025-03-04 21:02] LABS: INR 0.97
[2025-03-04 21:03] LABS: PTT,PARTIAL THROMBOPLSTIN TIME 28.1 SECONDS (21.7-31.4)
[2025-03-04 21:08] LABS: A/G RATIO 1.1 (1-2); ALANINE AMINOTRANSFERASE,ALT 27.0 U/L (14-59); ASPARTATE AMNIOTRANSFERASE,AST 15.0 U/L (15-37); BILIRUBIN TOTAL 0.3 mg/dL (0.2-1.0); BLOOD UREA NITROGEN,BUN 12.0 mg/dL (7-18); CARBON DIOXIDE,CO2 27.0 mEq/L (21-32); CHLORIDE,CL 106.0 mEq/L (98-107); CREATININE 0.8 mg/dL (0.55-1.02); EST CRCL DRUG DOSING (CG) 81.33 mL/min; ESTIMATED GFR 102.0 mL/min (>60); GLUCOSE RANDOM 105.0 mg/dL (70-99); POTASSIUM,K 4.1 mEq/L (3.5-5.1); PROTEIN TOTAL,TP 7.2 g/dl (6.4-8.2); SODIUM,NA 142.0 mEq/L (136-145)
== END 2025-03-04 22:51 | disposition home or self-care (01) ==
LOC: JD.ED 19:19
DX: N83.202 Unspecified ovarian cyst, left side (principal); J45.909 Unspecified asthma, uncomplicated; K21.9 Gastro-esophageal reflux disease without esophagitis; E66.9 Obesity, unspecified; Z86.16 Personal history of COVID-19; Z88.5 Allergy status to narcotic agent; Z91.048 Other nonmedicinal substance allergy status; Z79.899 Other long term (current) drug therapy; Z68.32 Body mass index [BMI] 32.0-32.9, adult
CPT/HCPCS: 36415; 76830; 80053; 84703; 85025; 85610; 85730; 99284; A9270

== ENCOUNTER 2025-03-13 11:46 | Emergency (ER) | payer OTHER ==
[2025-03-13 13:14] LABS: BASOPHILS ABSOLUTE AUTO 0.0 K/mm3 (0.0-0.2); BASOPHILS PERCENT AUTO 0.6 % (0.0-1.0); EOSINOPHILS ABSOLUTE AUTO 0.1 K/mm3 (0.0-0.4); EOSINOPHILS PERCENT AUTO 1.9 % (0.0-6.0); IMMATURE GRAN ABSOLUTE AUTO 0.02 K/mm3 (0.00-0.05); IMMATURE GRAN PERCENT AUTO 0.3 % (0.0-0.4); LYMPHOCYTES ABSOLUTE AUTO 1.7 K/mm3 (1.0-4.8); LYMPHOCYTES PERCENT AUTO 26.1 % (24.0-44.0); MEAN PLATELET VOLUME 10.4 fl (9.4-12.3); MONOCYTES ABSOLUTE AUTO 0.4 K/mm3 (0.0-0.8); MONOCYTES PERCENT AUTO 5.5 % (0.0-8.0); NEUTROPHILS ABSOLUTE AUTO 4.2 K/mm3 (1.8-7.7); NEUTROPHILS PERCENT AUTO 65.6 % (41.0-71.0); NRBC ABSOLUTE 0.00 (0.00-0.02); NRBC PERCENT 0.0 % (0.0-0.2); PLATELET COUNT,PLT 309 K/mm3 (150-400); RED BLOOD CELL COUNT 4.12 M/mm3 (4.10-5.30); WHITE BLOOD CELL COUNT,WBC 6.36 K/mm3 (3.9-11.3)
[2025-03-13] MEDS: Sodium Chloride 0.9% 10 ML Syringe FLUSH PRN (13:37)
[2025-03-13 13:38] LABS: A/G RATIO 1.1 (1-2); ALANINE AMINOTRANSFERASE,ALT 26.0 U/L (14-59); ASPARTATE AMNIOTRANSFERASE,AST 16.0 U/L (15-37); BILIRUBIN TOTAL 0.4 mg/dL (0.2-1.0); BLOOD UREA NITROGEN,BUN 11.0 mg/dL (7-18); CARBON DIOXIDE,CO2 27.0 mEq/L (21-32); CHLORIDE,CL 105.0 mEq/L (98-107); CREATININE 0.7 mg/dL (0.55-1.02); EST CRCL DRUG DOSING (CG) 97.21 mL/min; ESTIMATED GFR 119.0 mL/min (>60); GLUCOSE RANDOM 91.0 mg/dL (70-99); POTASSIUM,K 4.2 mEq/L (3.5-5.1); PROTEIN TOTAL,TP 7.0 g/dl (6.4-8.2); SODIUM,NA 139.0 mEq/L (136-145)
[2025-03-13 19:06] VITALS: BP 114/62; PULSE 80
== END 2025-03-13 15:44 | disposition home or self-care (01) ==
LOC: JD.ED 11:46
DX: N93.9 Abnormal uterine and vaginal bleeding, unspecified (principal); J45.909 Unspecified asthma, uncomplicated; K21.9 Gastro-esophageal reflux disease without esophagitis; Z88.5 Allergy status to narcotic agent; Z88.8 Allergy status to other drugs, medicaments and biological substances; Z79.899 Other long term (current) drug therapy; Z86.16 Personal history of COVID-19
CPT/HCPCS: 36415; 80053; 84703; 85025; 96360; 99284; J7030; 99283